=== PATIENT | female | born 1995 | race Caucasian/White ===

== ENCOUNTER 2019-11-13 10:55 | Emergency (ER) | payer MEDICAID, SELFPAY ==
--- NOTE | 2019-11-13 11:08 | ED.GENADULT ---
HPI - General Adult General Chief complaint: Recheck/Abnormal Lab/Rx Stated complaint: asthma symptoms Time Seen by Provider: 11/13/19 11:23 Source: patient Mode of arrival: ambulatory Limitations: no limitations History of Present Illness HPI narrative: 24-year-old female patient presents to the the medical center with complaints of an asthma exacerbation. Patient states that her asthma has been flaring up for the last several days and states that she is out of her nebulizer solution and only has a few puffs left of her inhaler. Patient states that she recently moved to the area and states as this time she does not have a primary doctor and states that no one is taking new patients at this time due to the coronavirus pandemic. Patient denies any chest pain at this time and states she has had some shortness of breath at times. Patient states that she does have a history of asthma. Patient denies any fevers, coughing, abdominal pain, nausea, vomiting or diarrhea. Related Data Home Medications Medication Instructions Recorded Confirmed Bc Pill 11/13/19 albuterol sulfate 11/13/19 albuterol sulfate 11/13/19 spironolactone 11/13/19 Allergies Allergy/AdvReac Type Severity Reaction Status Date / Time No Known Allergies Allergy Verified 11/13/19 11:26 Review of Systems Review of Systems: Narrative: CONSTITUTIONAL: Denies fever, chills, or sweats. EYES: Denies visual changes, redness, or discharge. ENT: Denies rhinorrhea, congestion, sore throat, or otalgia. CARDIOVASCULAR: Denies chest pain, palpitations, or edema. RESPIRATORY: Denies cough, positive dyspnea. GASTROINTESTINAL: Denies abdominal pain, nausea, vomiting, or diarrhea. GENITOURINARY: Denies dysuria or hematuria. SKIN: Denies rash or itching. MUSCULOSKELETAL: Denies back pain, joint pain, or myalgia. NEUROLOGIC: Denies headache, numbness, or weakness. PSYCHIATRIC: Denies anxiety or depression. PMFSH Comments At the time of my signature I agree with nursing past medical history, surgical, social, and family history. There is no relevant family history pertinent to the presenting complaint. Exam Narrative: Exam Narrative: GENERAL: Well-appearing, well-nourished, and in no acute distress. HEAD: Normocephalic, atraumatic. EYES: PERRLA and EOMI. ENT: Nares clear, no rhinorrhea or epistaxis. Mucous membranes moist. Posterior pharynx with no erythema, tonsil enlargement, exudates or lesions present. Bilateral TMs are clear with no erythema or foreign bodies in the canal. NECK: Supple. No lymphadenopathy CHEST: Patient does have inspiratory and expiratory wheezing noted to bilateral upper and lower lobes on auscultation. No respiratory distress. Patient is able to talk in clear complete sentences. No tripoding noted. HEART: Regular rate and rhythm. No murmur heard. Normal peripheral pulses. ABDOMEN: Soft, nontender, nondistended, normal active bowel sounds. EXTREMITIES: Normal range of motion. No edema. SKIN: Warm, dry, no rash. NEURO: No focal deficits. Alert and oriented x3. Course Vital Signs Vital signs: Vital Signs Temperature 36.3 C L 11/13/19 11:17 Pulse Rate 73 11/13/19 11:17 Respiratory Rate 18 11/13/19 11:17 Blood Pressure 104/63 11/13/19 11:17 Pulse Oximetry 96 11/13/19 11:17 Temperature 36.3 C L 11/13/19 11:17 Pulse Rate 73 11/13/19 11:17 Respiratory Rate 18 11/13/19 11:17 Blood Pressure 104/63 11/13/19 11:17 Pulse Oximetry 96 11/13/19 11:17 Vital signs reviewed. Medical Decision Making Differential Diagnosis Differential Diagnosis: Differential diagnosis: Allergic rhinitis, chronic sinusitis, tonsillitis, acute sinusitis, infectious mononucleosis, seasonal influenza, pertussis, diphtheria, meningococcal disease, viral syndrome, viral bronchitis, RSV. GERD, URI, asthma bronchitis, pneumonia, COPD exacerbation, cardiac-related shortness of breath, AAA, spontaneous pneumothorax, pulmonary embolism, foreign body aspi
[2019-11-13 11:17] VITALS: BP 104/63; PULSE 73; RESP 18; TEMP 36.3; O2SAT 96
== END 2019-11-13 11:30 | disposition home or self-care (01) ==
PROVIDERS: Emergency Provider Nurse Practitioner Family
DX: J45.41 Moderate persistent asthma with (acute) exacerbation (principal); E28.2 Polycystic ovarian syndrome
CPT/HCPCS: 99203; G0463

== ENCOUNTER 2019-12-29 17:02 | Emergency (ER) | payer OTHER, SELFPAY ==
--- NOTE | 2019-12-29 17:06 | ED.GENADULT ---
HPI - General Adult General Chief complaint: Asthma Stated complaint: asthma Time Seen by Provider: 12/29/19 17:27 Source: patient Mode of arrival: ambulatory Limitations: no limitations History of Present Illness HPI narrative: 24-year-old female patient presents to the [facility] with complaints of asthma exacerbation. Patient states is been going on for a couple of weeks now however she has been out of her nebulized albuterol. Patient states she has been using her inhaler but does not seem to be helping. Patient continues to have some shortness of breath as well as wheezing. Denies any fevers. Denies any nausea vomiting or diarrhea. Denies any chest pain. Related Data Home Medications Medication Instructions Recorded Confirmed Bc Pill 11/13/19 albuterol sulfate 11/13/19 spironolactone 11/13/19 Allergies Allergy/AdvReac Type Severity Reaction Status Date / Time No Known Allergies Allergy Verified 11/13/19 11:26 Review of Systems Review of Systems: Narrative: CONSTITUTIONAL: Denies fever, chills, or sweats. EYES: Denies visual changes, redness, or discharge. ENT: Denies rhinorrhea, congestion, sore throat, or otalgia. CARDIOVASCULAR: Denies chest pain, palpitations, or edema. RESPIRATORY: Denies cough, positive dyspnea. GASTROINTESTINAL: Denies abdominal pain, nausea, vomiting, or diarrhea. GENITOURINARY: Denies dysuria or hematuria. SKIN: Denies rash or itching. MUSCULOSKELETAL: Denies back pain, joint pain, or myalgia. NEUROLOGIC: Denies headache, numbness, or weakness. PSYCHIATRIC: Denies anxiety or depression. PMFSH Comments At the time of my signature I agree with nursing past medical history, surgical, social, and family history. There is no relevant family history pertinent to the presenting complaint. Exam Narrative: Exam Narrative: GENERAL: Well-appearing, well-nourished, and in no acute distress. HEAD: Normocephalic, atraumatic. EYES: PERRLA and EOMI. ENT: Nares clear, no rhinorrhea or epistaxis. Mucous membranes moist. NECK: Supple. No lymphadenopathy CHEST: Patient has inspiratory and expiratory wheezing noted to bilateral upper and lower lobes on auscultation. Patient is talking in broken sentences. HEART: Regular rate and rhythm. No murmur heard. Normal peripheral pulses. ABDOMEN: Soft, nontender, nondistended, normal active bowel sounds. EXTREMITIES: Normal range of motion. No edema. SKIN: Warm, dry, no rash. NEURO: No focal deficits. Alert and oriented x3. Course Reevaluation(s) Reevaluation #1: Reevaluated patient after her DuoNeb has been completed. Patient is much clearer still hear a little inspiratory wheezing to the left lower lobe but overall much improved. Patient states that she is feeling much better. Discussed with patient we will go ahead and discharge her home with the oral steroids as well as the refill for the nebulized albuterol. Patient states she does not need any more refills on her portable inhaler. Discussed with patient that if she continues have worsening symptoms such as increased chest pain, shortness of breath despite the medications that we are giving her today that she would need to go the ER for further evaluation and treatment. Otherwise patient should follow-up with her primary doctor in the next 5 to 7 days as needed. Date: 12/29/19 Time: 18:10 Vital Signs Vital signs: Vital Signs Temperature 36.4 C 12/29/19 17:13 Pulse Rate 72 12/29/19 17:13 Respiratory Rate 12/29/19 17:13 Blood Pressure 130/84 12/29/19 17:13 Pulse Oximetry 98 12/29/19 17:13 Temperature 36.4 C 12/29/19 17:13 Pulse Rate 72 12/29/19 17:13 Respiratory Rate 20 12/29/19 17:13 Blood Pressure 130/84 12/29/19 17:13 Pulse Oximetry 98 12/29/19 17:13 Vital signs reviewed. Medical Decision Making Differential Diagnosis Differential Diagnosis: Differential diagnosis: GERD, URI, asthma bronchitis, pneumonia, COPD exacerbation, cardiac-related shortn
[2019-12-29 17:13] VITALS: BP 130/84; PULSE 72; RESP 20; TEMP 36.4; O2SAT 98
[2019-12-29] MEDS: ALBUTEROL SULFATE NEB 2.5 MG/3 ML INH INHALATION (17:38)
[2019-12-29] MEDS: IPRATROPIUM BR 0.02% INH SOLN 0.5 MG/2.5 ML VIAL INHALATION (17:39)
[2019-12-29 18:14] VITALS: PULSE 67; RESP 16; O2SAT 96
== END 2019-12-29 18:14 | disposition home or self-care (01) ==
PROVIDERS: Emergency Provider Nurse Practitioner Family
DX: J45.901 Unspecified asthma with (acute) exacerbation (principal); E28.2 Polycystic ovarian syndrome
CPT/HCPCS: 94640; 99213; G0463

== ENCOUNTER 2020-04-22 11:17 | Emergency (ER) | payer OTHER, SELFPAY ==
[2020-04-22 11:26] VITALS: BP 137/89; PULSE 65; RESP 20; TEMP 36.4; O2SAT 99
--- NOTE | 2020-04-22 11:39 | ED.URI ---
HPI - URI/Sore Throat General Chief Complaint: Upper Respiratory Infection Stated Complaint: sore throat Time Seen by Provider: 04/22/20 11:40 Source: patient and RN notes reviewed Mode of arrival: ambulatory Limitations: no limitations History of Present Illness HPI Narrative: 25-year-old female presents with concern for sore throat. Reports mild rhinorrhea, denies headache, nausea, nasal congestion, shortness of breath, fever, body aches, chills, sweats. MD elicited complaint: sore throat Related Data Home Medications Medication Instructions Recorded Confirmed spironolactone 200 mg PO DAILY 11/13/19 04/22/20 norethindrone ac-eth estradiol 1 tablet PO DAILY 04/22/20 04/22/20 [Microgestin 1.5/ (21)] Allergies Allergy/AdvReac Type Severity Reaction Status Date / Time No Known Allergies Allergy Verified 04/22/20 11:34 Review of Systems Review of Systems: Narrative: CONSTITUTIONAL: Denies malaise, chills, sweats, or fever. EYES: Denies visual changes, redness, or discharge. ENT: Denies congestion, sinus pain, otalgia. Reports rhinorrhea and sore throat. CARDIOVASCULAR: Denies chest pain, palpitations, or edema. RESPIRATORY: Reports occasional cough. Denies dyspnea. GASTROINTESTINAL: Denies abdominal pain, nausea, vomiting, diarrhea SKIN: Denies rash or itching. MUSCULOSKELETAL: Denies myalgia. NEUROLOGIC: Denies headache. All systems reviewed & are unremarkable except as noted in HPI and below PMFSH Comments At time of signature, agree with nursing past medical, surgical, social and family history. There is no relevant family history pertinent to the presenting complaint Exam Narrative: Exam Narrative: GENERAL: Well-appearing, well-nourished, and in no acute distress. HEAD: Normocephalic EYES: PERRLA, conjunctivae clear ENT: Nares clear, turbinates erythematous, clear discharge. Mucous membranes moist. TM pearly mondragon with sharp light reflex bilaterally; no tragal tenderness. Oropharynx erythematous without lesions. Tonsils mildly enlarged and without exudate, no drooling, no hoarseness, no trismus, uvula midline. NECK: Supple. No lymphadenopathy CHEST: Clear to auscultation, breath sounds equal. No wheezing, rhonchi, rales, or stridor. No respiratory distress, speaks in full sentences. HEART: Regular rate and rhythm. No murmur heard. SKIN: Warm, dry, no rash. NEURO: Alert and oriented x3. PSYCH: Normal mood and affect Course Course Emergency Course: Patient is aware of diagnosis, understands and agrees to treatment plan. Anticipatory guidance given. Patient agrees to follow-up as directed and is aware of reasons to seek care at the emergency department. Portions of this record may have been created with voice recognition software Vital Signs Vital signs: Vital Signs Temperature 97.6 F 04/22/20 11:26 Pulse Rate 65 04/22/20 11:26 Respiratory Rate 20 04/22/20 11:26 Blood Pressure 137/89 04/22/20 11:26 Pulse Oximetry 99 04/22/20 11:26 Temperature 97.6 F 04/22/20 11:26 Pulse Rate 65 04/22/20 11:26 Respiratory Rate 20 04/22/20 11:26 Blood Pressure 137/89 04/22/20 11:26 Pulse Oximetry 99 04/22/20 11:26 Reviewed. Patient has been instructed to follow up with her primary care provider within the next week regarding her elevated blood pressure today. MDM - URI/Sore Throat MDM Narrative Medical decision making narrative: Differential diagnosis considered: [place] virus, strep pharyngitis, allergic rhinitis, upper respiratory tract infection, sinusitis, rhinosinusitis, nasopharyngitis. viral pharyngitis, otitis media, otitis externa, pneumonia, bronchitis, viral cough syndrome, viral syndrome, and influenza. Exam findings show no acute concerns or changes; patient is non-toxic appearing and is in no distress. Patient is appropriate for outpatient treatment and follow-up. Lab Data Attestation: I reviewed the patient's lab results. Labs: Influenza A Screen Negative
== END 2020-04-22 12:01 | disposition home or self-care (01) ==
PROVIDERS: Emergency Provider Nurse Practitioner; PCP Emergency Medicine
DX: J02.0 Streptococcal pharyngitis (principal); J45.909 Unspecified asthma, uncomplicated; E28.2 Polycystic ovarian syndrome
CPT/HCPCS: 87804; 87880; 99213; G0463

== ENCOUNTER 2020-04-23 09:08 | Outpatient (NON) | payer OTHER, SELFPAY ==
[2020-04-23 17:37] LABS: SARS-CoV-2 RNA PCR Negative
== END 2020-04-23 09:09 ==
PROVIDERS: PCP Emergency Medicine; Visit Provider Nurse Practitioner
DX: J02.9 Acute pharyngitis, unspecified (principal); Z20.828 Contact with and (suspected) exposure to other viral communicable diseases
CPT/HCPCS: 87635; C9803; U0003

== ENCOUNTER 2021-02-23 13:30 | Emergency (ER) | payer OTHER, SELFPAY ==
[2021-02-23 13:50] VITALS: BP 127/87; PULSE 82; RESP 18; TEMP 36.7; O2SAT 98
--- NOTE | 2021-02-23 13:55 | ED.GENADULT ---
HPI - General Adult General Chief complaint: Asthma Stated complaint: Shortness of breathe,Weezing Source: patient and RN notes reviewed Mode of arrival: ambulatory History of Present Illness HPI narrative: This is a 26-year-old female that presented to urgent care because she needed a refill on her albuterol. According to patient her primary care physician would not fill her prescription because she did not make her last appointment. Patient notes that without her inhaler she has become more short of breath if she will be given a refill on her asthma medication instructed to follow-up with her primary care physician. Related Data Home Medications Medication Instructions Recorded Confirmed drospirenone (contraceptive) 4 mg PO DAILY 02/23/21 02/23/21 [Slynd] Allergies Allergy/AdvReac Type Severity Reaction Status Date / Time No Known Allergies Allergy Verified 02/23/21 13:48 Review of Systems Review of Systems: A 14 organ system Review of Systems was performed and pertinent positives included in the HPI, otherwise remaining ROS is negative. [facility] Family History Family History (Updated 02/23/21 @ 14:10 by PATTY FigueroaC) Other Family history non-contributory Social History Social History Gender identity (if verbalized by the patient): Female Exam Narrative: GENERAL: This is a well-nourished, well-developed patient, in no apparent distress. HEAD: normocephalic, atraumatic. EYES: PERRL. Sclera clear/white. Vision is grossly intact. EARS: External ears normal, auditory canals clear and without drainage, TMs normal without perforation. Hearing grossly intact. NOSE: External nose normal with no obvious nasal discharge, nares without redness, no rhinorrhea. THROAT: Mucous membranes moist, posterior pharynx clear. NECK: Neck supple, non-tender without lymphadenopathy, masses or thyromegaly. CARDIOVASCULAR: Regular rate and rhythm without murmurs, gallops, or rubs. RESPIRATORY: Clear to auscultation. Breath sounds equal bilaterally. No wheezes, rales, or rhonchi. GASTROINTESTINAL: Abdomen soft, non-tender, nondistended. Bowel sounds are active. No hepato-splenomegaly, or palpable masses. No guarding. SKIN: warm, intact with no suspicious lesions or rash, good texture and turgor. NEURO: awake, alert, and oriented to person, place and time. There were no obvious focal neurologic abnormalities. Steady gait EXTREMITIES: Normal range of motion. No edema. No calf tenderness. Negative Homans sign bilaterally. BACK: Nontender without deformity or crepitance. No flank tenderness. Course Course Emergency Course: Refill on patient's current medication Vital Signs Vital signs: Vital Signs Temperature 98.0 F 02/23/21 13:50 Pulse Rate 82 02/23/21 13:50 Respiratory Rate 18 02/23/21 13:50 Blood Pressure 127/87 02/23/21 13:50 Pulse Oximetry 98 02/23/21 13:50 Temperature 98.0 F 02/23/21 13:50 Pulse Rate 82 02/23/21 13:50 Respiratory Rate 18 02/23/21 13:50 Blood Pressure 127/87 02/23/21 13:50 Pulse Oximetry 98 02/23/21 13:50 Medical Decision Making Differential Diagnosis Differential Diagnosis: Asthma Vital Signs Vital Signs: Vital Signs Temperature 98.0 F 02/23/21 13:50 Pulse Rate 82 02/23/21 13:50 Respiratory Rate 18 02/23/21 13:50 Blood Pressure 127/87 02/23/21 13:50 Pulse Oximetry 98 02/23/21 13:50 Temperature 98.0 F 02/23/21 13:50 Pulse Rate 82 02/23/21 13:50 Respiratory Rate 18 02/23/21 13:50 Blood Pressure 127/87 02/23/21 13:50 Pulse Oximetry 98 02/23/21 13:50 Discharge Plan Discharge Clinical Impression: Asthma Qualifiers: Asthma severity: mild Asthma persistence: intermittent Asthma complication type: uncomplicated Qualified Code(s): J45.20 - Mild intermittent asthma, uncomplicated Patient Disposition: Home, Self-Care Condition: Stable Instructions: A
== END 2021-02-23 14:10 | disposition home or self-care (01) ==
PROVIDERS: Emergency Provider Nurse Practitioner
DX: J45.20 Mild intermittent asthma, uncomplicated (principal)
CPT/HCPCS: 99213; G0463

== ENCOUNTER 2021-06-26 07:52 | Outpatient (CLI) | payer OTHER, SELFPAY ==
--- NOTE | 2021-07-03 13:51 | WPDHOMESLEEP ---
Sleep Study - Home Unattended Date of Study: 06/26/21 <Etelvina Joshi DO - Last Filed: 07/03/21 14:02> Ordering Provider: Connie Cotto NP <Etelvina Joshi DO - Last Filed: 07/03/21 14:02> Interpreting Provider: Etelvina Joshi DO <Etelvina Joshi, DO - Last Filed: 07/03/21 14:02> Home Sleep Study Type: Apnea Link Air <Etelvina Joshi, DO - Last Filed: 07/03/21 14:02> Height: 1.75 m <Etelvina Joshi DO - Last Filed: 07/03/21 14:02> Weight: 131.542 kg <Etelvina Joshi DO - Last Filed: 07/03/21 14:02> Body Mass Index: 42.8 <Etelvina Joshi DO - Last Filed: 07/03/21 14:02> Neck Circumference (inches): 16 <Etelvina Joshi DO - Last Filed: 07/03/21 14:02> Bowie: 3 <Etelvina Joshi DO - Last Filed: 07/03/21 14:02> Reason for Sleep Study Hypersomnia <Etelvina Joshi DO - Last Filed: 07/03/21 14:02> Sleep History The patient is a 26-year-old female with anxiety, asthma and PCOS that had a home sleep test ordered by her primary care due to hypersomnia. The patient states she has a hard time staying asleep. She tosses and turns frequently. The patient rarely awakens from sleep short of breath. She rarely awakens at night with heartburn, belching or cough. She is unsure if she snores. She constantly has trouble sleeping when she has a cold. She denies waking up gasping for air throughout the night. She occasionally has breathing problems at night observed by others. She occasionally sweats excessively at night. She denies heart palpitations or irregular heartbeats during the night. She occasionally falls asleep during the day but never while driving. The patient denies sleep paralysis, cataplexy and hypnagogic / hypnopompic hallucinations. She denies having nightmares. She rarely feels sad or depressed. She occasionally has anxiety. She denies noticing parts of her body jerk. She denies kicking throughout the night. She denies crawling and aching feelings in her legs as well as leg pain during the night. She rarely correct teeth during sleep and rarely awakens with a morning jaw pain. She denies being bothered by pain during the day and being awakened by pain during the. She denies waking up feeling stiff in the morning sore and achy muscles. She goes to bed at midnight on both weekdays and weekends. It takes her 20 minutes to fall asleep. She wakes up 3 times throughout the night. When she awakens, she will look at the clock and change positions. She can fall asleep within a couple minutes or it will occasionally take hours. She wakes up between 6 and 8:00 a.m. on both weekdays and weekends. She typically gets between 6 and 8 hours of sleep per night. She will stay in bed for a few minutes after awakening in morning. She currently lives with her sister. She denies consuming any caffeinated beverages within 2 hours of bedtime. She does not engage in physical exercise before bedtime. She will watch television before falling asleep. She does take naps in the afternoon or the evening but they are not refreshing. The patient quit smoking 6 years ago. She does consume 2 caffeinated beverages per day. She denies alcohol use. She does use marijuana occasionally. <Etelvina Joshi DO - Last Filed: 07/03/21 14:02> [facility] Past Medical History Medical History: Medical History Anxiety Asthma BMI 40.0-44.9, adult Cerumen impaction Encounter to establish care Environmental and seasonal allergies Hypersomnia PCOS (polycystic ovarian syndrome) <Etelvina Joshi DO - Last Filed: 07/03/21 14:02> Family History Family History: Family History Father Depression Anxiety Mother Alcoholism Hypertension Depression Anxiety Grandparent Diabetes mellitus Hypertension Depression
[2021-07-03 14:02] VITALS: BMI 42.8
== END 2021-06-27 14:25 | disposition home or self-care (01) ==
LOC: ANHCSM 07:52
PROVIDERS: PCP Nurse Practitioner Family; Visit Provider Nurse Practitioner Family
DX: G47.10 Hypersomnia, unspecified (principal); G47.9 Sleep disorder, unspecified
CPT/HCPCS: 95806

== ENCOUNTER 2021-08-27 16:50 | Emergency (ER) | payer OTHER, SELFPAY ==
[2021-08-27 17:02] VITALS: BP 148/114; PULSE 84; RESP 18; TEMP 36.1; O2SAT 100
[2021-08-27] MEDS: TETANUS,DIPHTHERIA,AC PERTUSSIS ADULT (0.5 ML) BOOSTRIX IM (17:28)
--- NOTE | 2021-08-27 17:32 | ED.GENADULT ---
HPI - General Adult General Chief complaint: Skin/Abscess/Foreign Body Stated complaint: rt thumb laceration Source: patient Mode of arrival: ambulatory Limitations: no limitations History of Present Illness HPI narrative: Presents for evaluation of wound to the right thumb. She works at [employer] and cut her right thumb two hours ago while using a mandolin. She applied pressure to the area but was unable to get it to stop bleeding. Her boss' is a nurse and was unable to get the bleeding to stop either, so she came here for further evaluation. She reports moderate sharp pain in the affected area. No loss of ROM. No paresthesias. She is not diabetic. She is right hand dominant. Date of last tetanus unknown. No additional complaints or concerns. Related Data Home Medications Medication Instructions Recorded Confirmed metformin 500 mg PO TID 08/27/21 08/27/21 montelukast 10 mg PO DAILY 08/27/21 08/27/21 norethindrone-e.estradiol-iron 1 tablet PO DAILY 08/27/21 08/27/21 [Aurovela Fe 1.5/30 (28)] spironolactone 100 mg PO DAILY 08/27/21 08/27/21 Allergies Allergy/AdvReac Type Severity Reaction Status Date / Time No Known Allergies Allergy Verified 08/27/21 17:07 Review of Systems Review of Systems: CONSTITUTIONAL: Denies fever, chills, or sweats. EYES: Denies visual changes, redness, or discharge. ENT: Denies rhinorrhea, congestion, sore throat, or otalgia. CARDIOVASCULAR: Denies chest pain, palpitations, or edema. RESPIRATORY: Denies cough or dyspnea. GASTROINTESTINAL: Denies abdominal pain, nausea, vomiting, or diarrhea. GENITOURINARY: Denies dysuria or hematuria. SKIN: Reports avulsion injury to right thumb MUSCULOSKELETAL: Report right thumb pain. Denies back pain NEUROLOGIC: Denies headache, numbness, dizziness, or weakness. PSYCHIATRIC: Denies anxiety or depression. [facility] Past Medical History Medical History (Updated 08/27/21 @ 17:44 by Kwasi Hyde, BIOPSYCHOLOGIST, ) Anxiety Asthma BMI 40.0-44.9, adult Cerumen impaction Encounter to establish care Environmental and seasonal allergies Hypersomnia PCOS (polycystic ovarian syndrome) Skin avulsion Surgical History Surgical History History of wisdom tooth extraction Family History Family History Father Depression Anxiety Mother Alcoholism Hypertension Depression Anxiety Grandparent Diabetes mellitus Hypertension Depression Anxiety Other Family history non-contributory Social History Social History Smoking status: Former smoker Alcohol intake: current Alcohol use details: socially Substance use: current Substance use type: marijuana Last use: weekends Gender identity (if verbalized by the patient): Female Exam Narrative: GENERAL: Well-appearing, well-nourished, and in no acute distress. HEAD: Normocephalic, atraumatic. EYES: PERRLA and EOMI. ENT: Nares clear, no rhinorrhea or epistaxis. Mucous membranes moist. Oropharynx without tonsillar hypertrophy exudate or other lesions. Bilateral TMs pearly mondragon nonbulging NECK: Supple. No adenopathy or masses. No carotid bruits or JVD CHEST: Clear to auscultation. No respiratory distress. No wheezes rales or rhonchi HEART: Regular rate and rhythm. No murmur heard. Normal peripheral pulses. ABDOMEN: Soft, nontender, nondistended, normal active bowel sounds. EXTREMITIES: Normal range of motion. No edema. SKIN: Approximately 8 mm avulsion injury to distal phalanx of right thumb that is actively bleeding. Abd pain in place, which was removed for evaluation NEURO: No focal deficits. Alert and oriented x3. PSYCH: Normal mood and affect. Course Course Emergency Course: This is a 26-year-old female that presented with an avulsion injury to the distal phalanx of the right thumb. T
== END 2021-08-27 17:37 | disposition home or self-care (01) ==
PROVIDERS: Emergency Provider Nurse Practitioner; PCP Family Medicine
DX: S61.001A Unspecified open wound of right thumb without damage to nail, initial encounter (principal); W27.4XXA Contact with kitchen utensil, initial encounter; Y99.0 Civilian activity done for income or pay; Z23 Encounter for immunization; J45.909 Unspecified asthma, uncomplicated; E28.2 Polycystic ovarian syndrome
CPT/HCPCS: 90471; 90715; 99212; G0463

== ENCOUNTER 2021-09-04 10:35 | Emergency (ER) | payer OTHER, SELFPAY ==
--- NOTE | 2021-09-04 10:50 | ED.URI ---
HPI - URI/Sore Throat General Chief Complaint: Upper Respiratory Infection Stated Complaint: flu symptoms and trouble breathing Time Seen by Provider: 09/04/21 10:58 Source: patient, RN notes reviewed and old records reviewed Mode of arrival: ambulatory Limitations: no limitations History of Present Illness HPI Narrative: 26-year-old female patient [facility] complaints of sinus congestion, sore throat and cough starting 5 days ago. Was started on Z-Jony by PCP 3 days ago. Reports sinus congestion and drainage is better. Sore throat continues. Has been taking Robitussin and other ejvj-wun-fwaixeg medicine for sinus congestion, drainage and cough. Woke up in the middle of the night with heart racing and it scared her. Patient thinks congestion moved to her chest, has been using albuterol nebulizer a couple puffs periodically throughout the day. Never using an entire albuterol nebulizer vial. Has not been using her controller inhaler and is unsure of the name. Has not been taking Singulair. Has not been using rescue inhaler has only been using nebulizer. [place] like she was wheezing yesterday. Feels like she has to work harder to take a deep breath. Reports eating and drinking okay. Has felt hot and cold, denies fever. Patient is wearing sweater at present and sweating, reports would feel cold if she took her sweater off. Patient also taking cephalexin for finger injury. MD elicited complaint: cough, sore throat, rhinorrhea and nasal congestion Related Data Home Medications Medication Instructions Recorded Confirmed metformin 500 mg PO TID 08/27/21 09/04/21 montelukast 10 mg PO DAILY 08/27/21 09/04/21 norethindrone-e.estradiol-iron 1 tablet PO DAILY 08/27/21 09/04/21 [Aurovela Fe 1.5/30 (28)] spironolactone 100 mg PO DAILY 08/27/21 09/04/21 albuterol 90 mcg/actuation aerosol mcg INHALATION PRN 08/28/21 08/28/21 inhaler fluticasone propionate 50 1 spray INTRANASAL BID 08/28/21 09/04/21 mcg/actuation nasal spray,suspension ipratropium 0.5 mg-albuterol 3 mg 3 ml INHALATION QID 02/21/22 02/28/22 (2.5 mg base)/3 mL nebulization soln Allergies Allergy/AdvReac Type Severity Reaction Status Date / Time No Known Allergies Allergy Verified 09/04/21 10:59 Review of Systems Review of Systems: CONSTITUTIONAL: Denies malaise, or fever. Hot and cold sweats at times. EYES: Denies visual changes, redness, or discharge. ENT: Reports rhinorrhea, congestion, sinus pain, and sore throat. Reports stuffy and runny nose are improved. Denies earache. CARDIOVASCULAR: Denies chest pain, palpitations, or edema. RESPIRATORY: Reports cough and congestion. Does not feel like she can easily take a full deep breath. Chest feels tight and congested. GASTROINTESTINAL: Denies abdominal pain, nausea, diarrhea. Vomited this morning. Denies nausea. SKIN: Denies rash or itching. MUSCULOSKELETAL: Denies myalgia. NEUROLOGIC: Headache off and on for the last 5 days. All systems reviewed & are unremarkable except as noted in HPI and below PMFSH Past Medical History Medical History Anxiety Asthma BMI 40.0-44.9, adult Cerumen impaction Encounter to establish care Environmental and seasonal allergies Hypersomnia PCOS (polycystic ovarian syndrome) Skin avulsion Surgical History Surgical History History of wisdom tooth extraction Family History Family History Father Depression Anxiety Mother Alcoholism Hypertension Depression Anxiety Grandparent Diabetes mellitus Hypertension Depression Anxiety Other Family history non-contributory Social History Social History Smoking status: Former smoker Alcohol intake: current Alcohol use details: socially Substance use: c
[2021-09-04 10:52] VITALS: BP 143/87; PULSE 124; RESP 28; TEMP 36.3; O2SAT 95
[2021-09-04] MEDS: IPRATROPIUM BR 0.02% INH SOLN 0.5 MG/2.5 ML VIAL INHALATION (11:17)
[2021-09-04] MEDS: ALBUTEROL SULFATE NEB 2.5 MG/3 ML INH INHALATION (11:18)
== END 2021-09-04 12:32 | disposition home or self-care (01) ==
PROVIDERS: Emergency Provider Nurse Practitioner Family; PCP Nurse Practitioner Family
DX: J45.901 Unspecified asthma with (acute) exacerbation (principal); Z87.891 Personal history of nicotine dependence; E28.2 Polycystic ovarian syndrome
CPT/HCPCS: 94640; 99213; G0463

== ENCOUNTER 2023-01-14 10:29 | Emergency (ER) | payer OTHER, SELFPAY ==
--- NOTE | 2023-01-14 10:41 | ED.URI ---
HPI - URI/Sore Throat General Chief Complaint: Upper Respiratory Infection Stated Complaint: sob Time Seen by Provider: 01/14/23 10:34 Source: patient Mode of arrival: ambulatory Limitations: no limitations History of Present Illness HPI Narrative: Patient is a 27-year-old female who presents with abdominal muscle pain for 2 weeks after multiple episodes of vomiting. Patient states she has been using heat and ice along with Tylenol and ibuprofen with no relief. Patient is no longer vomiting but still has pain when doing daily activities or taking deep breaths. Patient has primary care appointment on . Reports pain unchanged and feels like it is spasming at times. Patient did have migraine at start of symptoms which was causing the vomiting. Patient states she no longer has a migraine. Has not had any vision changes, numbness tingling to extremities, chest pain or shortness of breath. Related Data Home Medications Medication Instructions Recorded Confirmed metformin 500 mg tablet 500 mg PO TID 08/27/21 01/14/23 norethindrone 1.5 mg-ethinyl 1 tablet PO DAILY 08/27/21 01/14/23 estradiol 30 mcg(21)/iron 75 mg(7) tablet (Aurovela Fe 1.5/30 (28)) spironolactone 100 mg tablet 100 mg PO DAILY 08/27/21 01/14/23 fluticasone propionate 50 1 spray intranasal BID 08/28/21 01/14/23 mcg/actuation nasal spray,suspension (Flonase Allergy Relief) Allergies Allergy/AdvReac Type Severity Reaction Status Date / Time No Known Allergies Allergy Verified 01/14/23 10:41 Review of Systems Review of Systems: All systems reviewed & are unremarkable except as noted in HPI and below Constitutional: Constitutional: Denies body ache(s), Denies chills, Denies fatigue, Denies fever(s), Denies headache(s), Denies malaise and Denies weakness Eyes: Eyes: Denies blurry vision, Denies itchy eyes and Denies loss of vision ENT: Denies otalgia, Denies headache(s), Denies nasal congestion, Denies sinus pain and Denies sore throat Cardiovascular: Cardiovascular: Denies chest pain, Denies irregular heart rhythm and Denies dyspnea Respiratory: Respiratory: Denies cough and Denies dyspnea Gastrointestinal: Gastrointestinal: Reports abdominal pain, Denies diarrhea, Denies nausea and Denies vomiting Musculoskeletal: Musculoskeletal: Denies back pain, Denies myalgias and Denies arthralgias Integumentary/Breasts: Skin/Breast: Denies pruritus and Denies rash Neurologic: Denies headache(s), Denies loss of vision and Denies weakness Psychiatric: Psychiatric: Reports no additional psychiatric complaints Endocrine: Endocrine: Denies fatigue Allergic/Immunologic: Allergic/Immunologic: Denies itchy eyes PMFSH Past Medical History Medical History (Updated 01/14/23 @ 10:57 by Alessandra Rosales APRN) Anxiety Asthma BMI 40.0-44.9, adult Cerumen impaction Encounter to establish care Environmental and seasonal allergies Headache Hypersomnia Migraine headache Nausea & vomiting PCOS (polycystic ovarian syndrome) Skin avulsion Surgical History Surgical History History of wisdom tooth extraction Family History Family History Father Depression Anxiety Mother Alcoholism Hypertension Depression Anxiety Grandparent Diabetes mellitus Hypertension Depression Anxiety Other Family history non-contributory Social History Social History Smoking status: Former smoker Alcohol intake: current Alcohol use details: socially Substance use: current Substance use type: marijuana Last use: weekends Lack of Transportation: No Lack of Food: Sometimes True Current Housing: I Have Housing Concerned About Future Housing: No Difficulty Paying Gas/Electric Bills: No Difficulty Paying for Meds: No Currently Unemployed: No Education: Bachelor'
[2023-01-14 10:43] VITALS: BP 156/108; PULSE 82; RESP 18; TEMP 36.4; O2SAT 99
== END 2023-01-14 11:02 | disposition home or self-care (01) ==
PROVIDERS: Emergency Provider Nurse Practitioner Family; PCP Nurse Practitioner Family
DX: S39.011A Strain of muscle, fascia and tendon of abdomen, initial encounter (principal); X58.XXXA Exposure to other specified factors, initial encounter; J45.909 Unspecified asthma, uncomplicated; E28.2 Polycystic ovarian syndrome
CPT/HCPCS: 99213; G0463

== ENCOUNTER 2023-05-15 13:10 | Emergency (ER) | payer OTHER, SELFPAY ==
[2023-05-15 13:16] VITALS: BP 153/110; PULSE 112; RESP 20; TEMP 36.4; O2SAT 97
[2023-05-15 13:43] VITALS: BP 154/114; PULSE 84; RESP 16; O2SAT 95
[2023-05-15 14:17] VITALS: BP 141/111; PULSE 88; RESP 16; O2SAT 95
[2023-05-15] MEDS: PROCHLORPERAZINE EDISYLATE 10 MG/2 ML VIAL IV PUSH (14:25)
[2023-05-15] MEDS: KETOROLAC 15 MG/ML VIAL (*BKC) IV PUSH (14:25)
[2023-05-15] MEDS: LACTATED RINGERS 1,000 ML 999 ML IV CONT (14:25)
[2023-05-15 14:28] VITALS: BP 154/127; O2SAT 97
--- NOTE | 2023-05-15 14:30 | ED.HA ---
HPI - Headache General Chief Complaint: Headache Stated Complaint: migraine Time Seen by Provider: 05/15/23 13:30 Source: patient Limitations: no limitations History of Present Illness HPI Narrative: This is a 20-year-old female who presents with a headache since Saturday which became worse today. It is associated with nausea and vomiting though she has been trying to maintain her hydration. She has been prescribed amitriptyline and butalbital but she tries to avoid taking either dvbi-apx-whnbmcg's or these medications unless the headache becomes intolerable so she did not take her prescribed medications until starting today and she took it twice. These are prescribed by her primary care physician. She has not yet established with a neurologist. This feels very similar to previous headaches. Her last headache was unilateral on the right and this time occurs unilaterally on the left with pain behind the eyes but she otherwise denies any vito eye pain. She does have photophobia and is wearing dark sunglasses both in the room and she states she wears these at home and outside when her symptoms are this bad. She has had some intermittent visual disturbances but denies any visual changes. No trauma, anticoagulation, or change in symptoms with change in location/environment. She states her limbs feel heavy. Her headache is an 8 or 9 out of 10 in severity. Related Data Home Medications Medication Instructions Recorded Confirmed metformin 500 mg tablet 500 mg PO TID 08/27/21 05/17/23 norethindrone 1.5 mg-ethinyl 1 tablet PO DAILY 08/27/21 05/17/23 estradiol 30 mcg(21)/iron 75 mg(7) tablet (Aurovela Fe 1.5/30 (28)) spironolactone 100 mg tablet 100 mg PO DAILY 08/27/21 05/17/23 fluticasone propionate 50 1 spray intranasal BID 08/28/21 05/17/23 mcg/actuation nasal spray,suspension (Flonase Allergy Relief) rimegepant 75 mg disintegrating 75 mg PO ONCE PRN 05/17/23 05/17/23 tablet (Nurtec ODT) Allergies Allergy/AdvReac Type Severity Reaction Status Date / Time sumatriptan Allergy Unknown Dizziness Verified 05/17/23 10:47 [facility] Past Medical History Medical History (Updated 05/17/23 @ 11:24 by Connie Cotto, ELECTRO WINNING OPERATOR) Anxiety Asthma BMI 40.0-44.9, adult Cerumen impaction Encounter to establish care Environmental and seasonal allergies Headache Heart murmur Hypersomnia Hypertension Migraine headache Morbid obesity with BMI of 45.0-49.9, adult Nausea & vomiting PCOS (polycystic ovarian syndrome) Skin avulsion Surgical History Surgical History History of wisdom tooth extraction Family History Family History Father Depression Anxiety Mother , liver failure Alcoholism Hypertension Depression Anxiety Liver failure Grandparent Diabetes mellitus Hypertension Depression Anxiety Other Family history non-contributory Social History Social History Smoking status: Former smoker Alcohol intake: current Alcohol use details: socially Substance use: current Substance use type: marijuana Last use: weekends Lack of Transportation: No Lack of Food: Sometimes True Current Housing: I Have Housing Concerned About Future Housing: No Difficulty Paying Gas/Electric Bills: No Difficulty Paying for Meds: No Currently Unemployed: No Education: Bachelor's Degree Difficulty w/ Childcare or Family Care: No Living arrangements: alone Gender identity (if verbalized by the patient): Female Exam Const: General: healthy appearing and alert; No diaphoretic Nutritional Appearance: obese Orientation/consciousness: patient oriented x3 and No confusion Limitations: no limitations HENMT: Head: normal to inspection Other: Gross auditory acuity intact Eyes: Conjunctivae: conjunctivae normal Pupils: Equa
[2023-05-15 15:57] VITALS: BP 149/101; PULSE 84; RESP 16; O2SAT 100
== END 2023-05-15 16:10 | disposition home or self-care (01) ==
PROVIDERS: Emergency Provider Student in an Organized Health Care Education/Training Program; PCP Nurse Practitioner Family
DX: G43.909 Migraine, unspecified, not intractable, without status migrainosus (principal); J45.909 Unspecified asthma, uncomplicated; I10 Essential (primary) hypertension; E28.2 Polycystic ovarian syndrome; E66.01 Morbid (severe) obesity due to excess calories; Z68.42 Body mass index [BMI] 45.0-49.9, adult; Z87.891 Personal history of nicotine dependence; Z79.84 Long term (current) use of oral hypoglycemic drugs; F41.9 Anxiety disorder, unspecified
CPT/HCPCS: 81025; 96361; 96374; 96375; 99284; J0780; J1885; J7120

== ENCOUNTER 2023-11-27 13:23 | Outpatient (CLI) | payer OTHER, MEDICAID, SELFPAY ==
--- NOTE | 2023-11-27 13:32 | ECHO_ITS ---
Patient Info Name: Court Agudelo Age: 28 years : 1995 Gender: Female Ht: 69 in Wt: 320 lbs BSA: 2.74 m2 HR: 94 bpm BP: 130 / 107 mmHg Technical Quality: Fair Exam Date: 11/27/2023 1:42 PM Exam Location: [facility] Patient Status: Outpatient Admit Date: 11/27/2023 Staff Ordering Physician: Connie Cotto NP National Sales Associate: Ottoniel Melendez RDCS Attending Provider: Connie Cotto NP Exam Type: CA echo dop bubble study w con Study Info Indications R01.1 - Cardiac murmur, unspecified Complete two-dimentional, color flow and Doppler transthoracic echocardiogram is performed with agitated saline and with contrast to opacify the left ventricle and to improve the delineation of the left ventricle endocardial borders. Contrast/Agitated Saline Contrast/Ag. Saline: Definity Amount: 2.00 ml IV Access Condition: patent with no signs of infiltration Contrast/Ag. Saline: Agitated Saline Amount: 14.00 ml IV Access Condition: patent with no signs of infiltration Summary 1. Left ventricular chamber dimension is normal. 2. D shape ventricular septum in systole suggests RV pressure overload. 3. Left ventricular systolic function is normal, estimated at 55-60%. 4. The left ventricular diastolic function is grade I diastolic dysfunction. 5. E/e' 4 is not elevated. 6. Right ventricular chamber dimension is severely enlarged. 7. Right ventricular systolic function is severely reduced and with abnormal TAPSE 1.5 cm. 8. Right atrial chamber dimension is severely enlarged. 9. Atrial septum bowed to left suggests increased right side atrial pressure. 10. Agitated saline injection with and without valsalva maneuver opacified right side cardiac chambers with significant shunt to left side cardiac chambers suggestive of patent foramen ovale or atrial septal defect. 11. There is mild mitral valve regurgitation. 12. There is moderate to severe tricuspid valve regurgitation. 13. Severe pulmonary hypertension, estimated pulmonary arterial systolic pressure is 117 mmHg. 14. There is mild pulmonic regurgitation. Left Ventricle E/e' 4 is not elevated. D shape ventricular septum in systole suggests RV pressure overload. Left ventricular chamber dimension is normal. Left ventricular systolic function is normal, estimated at 55-60%. The left ventricular diastolic function is grade I diastolic dysfunction. Right Ventricle Right ventricular systolic function is severely reduced and with abnormal TAPSE 1.5 cm. Right ventricular chamber dimension is severely enlarged. Left Atria Left atrial chamber dimension is normal. Right Atria Right atrial chamber dimension is severely enlarged. Atrial Septum Agitated saline injection with and without valsalva maneuver opacified right side cardiac chambers with significant shunt to left side cardiac chambers suggestive of patent foramen ovale or atrial septal defect. Atrial septum bowed to left suggests increased right side atrial pressure. Suspected patent foramen ovale visualized by 2D and agitated saline imaging. Aortic Valve The aortic valve is trileaflet. There is no aortic valve stenosis. There is no aortic valve regurgitation. Pulmonic Valve There is mild pulmonic regurgitation. Mitral Valve There is no mitral valve stenosis. There is mild mitral valve regurgitation. Tricuspid Valve There is moderate to severe tricuspid valve regurgitation. Severe pulmonary hypertension, estimated pulmonary arterial systolic pressure is 117 mmHg. Pericardium/Pleural The
[2023-11-27] MEDS: PERFLUTREN LIPID MICROSPHERES 1.5 ML VIAL DILUTED TO 10 ML TOTAL VOLUME IV PUSH (14:00)
--- NOTE | 2023-11-27 14:53 | ECG_ITS ---
SEE SCANNED COPY FOR CONFIRMED REPORT MTDD
--- NOTE | 2023-11-27 15:02 | IVDEFINITY ---
Prior to administration of IV Definity the patient was educated on the risks and benefits of the imaging enhancing agent including potential adverse side effects. The patient verbalized understanding. Allergies were verified. No exclusion criteria were identified and at least one of the following inclusion criteria were met: 1) physician request, 2) patient technically difficult to image (per the [place] [employer] Echocardi[employer] guidelines of two or more segments not discernable within the apical view), or 3) questionable left ventricular function. ?
== END 2023-11-27 13:24 | disposition home or self-care (01) ==
LOC: ANHCARD 13:25
PROVIDERS: PCP Nurse Practitioner Family; Visit Provider Nurse Practitioner Family
DX: R01.1 Cardiac murmur, unspecified (principal); I34.0 Nonrheumatic mitral (valve) insufficiency; I36.1 Nonrheumatic tricuspid (valve) insufficiency; I27.20 Pulmonary hypertension, unspecified; I37.1 Nonrheumatic pulmonary valve insufficiency; I11.9 Hypertensive heart disease without heart failure
CPT/HCPCS: 93005; 96375; C8929; Q9957

== ENCOUNTER 2023-11-28 17:19 | Observation (INO) | payer OTHER, MEDICAID, SELFPAY ==
--- NOTE | ~2023-11-28 | CT_ITS ---
EXAMINATION: CTA chest PE protocol DATE: 11/28/2023 21:25 INDICATION: Right ventricular overload TECHNIQUE: Computed tomography (CT) pulmonary angiogram of the chest was performed with 100 mL Omnipa que-350 intravenous contrast. Additional 3D reconstructions utilizing coronal maximum intensity proje ction (MIP) were performed. Automated exposure control and iterative reconstruction technique were em ployed. The dose-length product was 1136.83 mGy-cm. COMPARISON: None FINDINGS: No pulmonary embolism. There is enlargement of the central pulmonary arteries consistent with pulmona ry arterial hypertension. Small region of increased lucency at the left apex likely related to air tr apping in the setting of small airway disease. No pneumonia, pulmonary edema, pleural effusion or pne umothorax. Right heart predominant mild thyromegaly with prominent right atrial enlargement. No peric ardial effusion. Thoracic aorta is normal in caliber with no dissection. No pathologically enlarged t horacic lymphadenopathy. Visualized upper abdomen is unremarkable. Mild thoracic spondylosis with chr onic appearing mild anterior wedging at T7 and T8. IMPRESSION: 1. No pulmonary embolism. 2. Right hilar predominant mild thyromegaly with prominent right atrial enlargement. 3. Enlargement of the central pulmonary arteries consistent with pulmonary arterial hypertension. 4. Small region of likely air trapping at the apical left upper lobe suggestive of air-trapping such as in the setting of small airway disease. Reviewed, dictated and finalized at location A. IMPRESSION: 1. No pulmonary embolism. 2. Right hilar predominant mild thyromegaly with prominent right atrial enlarge ment. 3. Enlargement of the central pulmonary arteries consistent with pulmonary ita rial hypertension. 4. Small region of likely air trapping at the apical left upper lobe suggestive of air-trapping such as in the setting of small airway disease.
--- NOTE | 2023-11-28 17:26 | ECG_ITS ---
SEE SCANNED COPY FOR CONFIRMED REPORT MTDD
--- NOTE | 2023-11-28 20:51 | ECG_ITS ---
SEE SCANNED COPY FOR CONFIRMED REPORT MTDD
[2023-11-28 20:52] VITALS: BP 158/122; PULSE 84; RESP 20; O2SAT 95
[2023-11-28 21:17] LABS: Basophils Percent Auto 0.4 % (0.2-1.2); Eosinophils Absolute Auto 0.1 K/mm3 (0-0.3); Eosinophils Percent Auto 1.2 % (0-4.4); Hematocrit 51.8 % (37.0-47.0); Hemoglobin 16.8 g/dL (12.0-15.0); Immature Granulocyte Absolute 0.03 K/mm3 (0.00-0.031); Immature Granulocyte Percent A 0.3 % (0-0.5); Lymphocytes Absolute Auto 2.06 K/mm3 (0.9-3.2); Lymphocytes Percent Auto 20.9 % (18.3-44.2); Mean Corpuscular HGB Conc 32.4 g/dl (32-36); Mean Corpuscular Hemoglobin 29.4 pg (26-34); Mean Corpuscular Volume 90.6 fl (80-100); Mean Platelet Volume 12.1 fl (7.4-10.4); Monocytes Absolute Auto 0.4 K/mm3 (0.1-0.6); Monocytes Percent Auto 4.1 % (2.6-8.5); Neutrophils Absolute Auto 7.2 K/mm3 (1.3-6.7); Neutrophils Percent Auto 73.1 % (45.5-73.1); Platelet Count Result 180 k/mm3 (150-375); Red Blood Count 5.72 M/mm3 (4.2-5.4); White Blood Count 9.9 K/mm3 (4.5-10.0)
[2023-11-28 21:19] LABS: Estimated CRCL calculation 96 ml/min; Estimated Glomerular Filt Rate 53
[2023-11-28 21:27] LABS: Alanine Aminotransferase 27 U/L (6-35); Albumin Level 5.3 g/dL (3.5-5.1); Alkaline Phosphatase 71 U/L (38-126); Anion Gap 17 mmol/L (4-12); Aspartate Amino Transferase 40 U/L (14-36); Bilirubin,Total 3.1 mg/dL (0.2-1.3); Blood Urea Nitrogen 13 mg/dL (7-17); Calcium 9.9 mg/dL (8.4-10.2); Carbon Dioxide 21 mmol/L (22-30); Chloride 104 mmol/L (98-107); Estimated CRCL calculation 104 ml/min; Estimated Glomerular Filt Rate 59; Glucose 130 mg/dL (65-110); Potassium 4.4 mmol/L (3.4-5.0); Sodium 142 mmol/L (137-145)
[2023-11-28 21:28] LABS: Appearance Urine Clear (Clear); Bacteria Urine Rare /hpf; Bilirubin Urine Negative (Negative); Blood Urine Negative (Negative); Color Urine Yellow (Yellow); Glucose Urine UA Negative (Negative); Ketones Urine Negative (Negative); Leukocyte Esterase Ur 2+ LEU/UL (Negative); Nitrate Urine Negative (Negative); Non Pathogenic Casts 0-2; Protein Urine Trace mg/dL (Negative); Specific Grav Ur 1.009 (1.001-1.035); Squamous Epithelial Cell Urine Few /hpf (Few); WBC Urine 21-50 /hpf (0-3); pH Urine 6.5 (5.0-9.0)
[2023-11-28 21:33] LABS: INR 1.1; Partial Thromboplastin Time 30.4 Seconds (22.3-36.8)
[2023-11-28 21:39] LABS: Add Urine Microscopic? YES; NT Pro B Type Natriuretic Pept 1650 pg/mL (19.9-100); Troponin I < 0.012 ng/mL (0.000-0.034)
[2023-11-28 21:55] LABS: Lactic Acid Reflex 1.3 mmol/L (0.7-2.0)
[2023-11-28 22:22] LABS: Influenza A QL RT-PCR Negative (Negative); Influenza B QL RT-PCR Negative (Negative); RSV RNA, RT-PCR Negative (Negative); SARS-CoV-2 RNA PCR Negative (Negative)
[2023-11-28 22:30] VITALS: BP 132/101; PULSE 73; RESP 14; O2SAT 95
--- NOTE | 2023-11-28 22:33 | ED.GENADULT ---
HPI - General Adult General Chief complaint: Arrhythmia/Palpitations Stated complaint: CHEST FLUTTERING Time Seen by Provider: 11/28/23 20:46 History of Present Illness HPI narrative: This is a 28-year-old female presenting abnormal echocardiogram. Patient has been having 6 months of progressive hoarseness on exertion. She has also been having palpitations. At this point patient is unable to walk to the restroom and back without short of breath and diaphoretic. She had an outpatient echocardiogram earlier today which showed severe right strain with bowing of the septum. She was then sent to the ED for further evaluation. Patient symptoms been ongoing for 6 months. She was on OCPs but stopped them when she became short of breath she was concerned that she was at risk for blood clots. She denies fevers chills productive cough. She has had swelling of her legs bilaterally to the ankle. Related Data Home Medications Medication Instructions Recorded Confirmed metformin 500 mg tablet 500 mg PO TID 08/27/21 11/28/23 spironolactone 100 mg tablet 100 mg PO DAILY 08/27/21 11/28/23 Allergies Allergy/AdvReac Type Severity Reaction Status Date / Time sumatriptan Allergy Unknown Dizziness Verified 11/28/23 17:23 [facility] Past Medical History Medical History Abnormal echocardiogram Abnormal EKG Anxiety Asthma Bilateral lower extremity edema BMI 40.0-44.9, adult Cerumen impaction ARENAS (dyspnea on exertion) Encounter to establish care Environmental and seasonal allergies Headache Heart murmur Hypersomnia Hypertension Migraine headache Morbid obesity with BMI of 45.0-49.9, adult Nausea & vomiting PCOS (polycystic ovarian syndrome) Severe pulmonary hypertension Severe right ventricular systolic dysfunction Skin avulsion Snoring Surgical History Surgical History History of wisdom tooth extraction Family History Family History Father Depression Anxiety Mother , liver failure Alcoholism Hypertension Depression Anxiety Liver failure Grandparent Diabetes mellitus Hypertension Depression Anxiety Other Family history non-contributory Social History Social History Smoking status: Former smoker Alcohol intake: current Alcohol use details: socially Substance use: current Substance use type: marijuana Last use: weekends Lack of Transportation: No Lack of Food: Sometimes True Current Housing: I Have Housing Concerned About Future Housing: No Difficulty Paying Gas/Electric Bills: No Difficulty Paying for Meds: No Currently Unemployed: No Education: Bachelor's Degree Difficulty w/ Childcare or Family Care: No Living arrangements: alone Gender identity (if verbalized by the patient): Female Exam Narrative: APPEARANCE: Patient is obese, diaphoretic Head: atraumatic. EYES: EOMI, NOSE: Atraumatic NECK: Trachea midline RESPIRATORY: tachypneic, there to auscultation CARDIOVASCULAR: tachycardic ABDOMINAL: Non-distended obese MUSCULOSKELETAl: No obvious deformities NEURO: Alert. Moving 4/4 extremities SKIN:: diaphoretic PSYCHIATRIC: Normal affect Course Vital Signs Vital signs: Vital Signs Pulse Rate 84 11/28/23 20:52 Respiratory Rate 20 11/28/23 20:52 Blood Pressure 158/122 H 11/28/23 20:52 Pulse Oximetry 95 11/28/23 20:52 Pulse Rate 73 11/28/23 22:30 Respiratory Rate 14 11/28/23 22:30 Blood Pressure 132/101 H 11/28/23 22:30 Pulse Oximetry 95 11/28/23 22:30 Oxygen Delivery Room Air 11/28/23 21:14 Medical Decision Making MDM Narrative Medical decision making narrative: -Course: 28 year old female sent to the ED for a echocardiogram showing severe right ventricle strain. CTA showe
[2023-11-29] VITALS (11 sets, daily range): BP systolic 128–153; BP diastolic 83–113; PULSE 74–117; RESP 18–24; TEMP 36.5–36.7; O2SAT 93–100; BMI 48.1
--- NOTE | 2023-11-29 00:01 | ECG_ITS ---
SEE SCANNED COPY FOR CONFIRMED REPORT MTDD
[2023-11-29 00:19] LABS: Troponin I < 0.012 ng/mL (0.000-0.034)
--- NOTE | 2023-11-29 00:30 | PM.IMHP ---
H&P: HPI History of Present Illness Date/Time: 11/29/23 00:30 Chief Complaint: shortness of breath Narrative: patient is a 28-year-old morbidly obese came to hospital complaining of shortness of breath the patient has history of severe right ventricle hypertrophy has been in the hospital recently as well. Denied chest pain no shortness of bread. She does have history of migraine headaches and takes Advil. Today patient started to get more short of breath and T no urgency frequency of urination chest pain patient compliant with her medications at home continue on scene singular, Symbicort Review of Systems Review of Systems: All systems reviewed & are unremarkable except as noted in HPI and below PMFSH Past Medical History Medical History Abnormal echocardiogram Abnormal EKG Anxiety Asthma Bilateral lower extremity edema BMI 40.0-44.9, adult Cerumen impaction ARENAS (dyspnea on exertion) Encounter to establish care Environmental and seasonal allergies Headache Heart murmur Hypersomnia Hypertension Migraine headache Morbid obesity with BMI of 45.0-49.9, adult Nausea & vomiting PCOS (polycystic ovarian syndrome) Severe pulmonary hypertension Severe right ventricular systolic dysfunction Skin avulsion Snoring Surgical History Surgical History History of wisdom tooth extraction Family History Family History Father Depression Anxiety Mother , liver failure Alcoholism Hypertension Depression Anxiety Liver failure Grandparent Diabetes mellitus Hypertension Depression Anxiety Other Family history non-contributory Social History Social History Smoking status: Former smoker Alcohol intake: current Alcohol use details: socially Substance use: current Substance use type: marijuana Last use: weekends Lack of Transportation: No Lack of Food: Sometimes True Current Housing: I Have Housing Concerned About Future Housing: No Difficulty Paying Gas/Electric Bills: No Difficulty Paying for Meds: No Currently Unemployed: No Education: Bachelor's Degree Difficulty w/ Childcare or Family Care: No Living arrangements: alone Gender identity (if verbalized by the patient): Female Meds Home Medications and Allergies Home Medications Medication Instructions Recorded Confirmed Type metformin 500 mg tablet 500 mg PO TID 08/27/21 11/28/23 History spironolactone 100 mg tablet 100 mg PO DAILY 08/27/21 11/28/23 History inhalat.spacing dev,med. mask #1 ea 09/04/21 11/28/23 Rx (Aerochamber Plus Flow-Vu,Medium Mask) montelukast 10 mg tablet 10 mg PO DAILY #30 tabs 09/28/22 11/28/23 Rx albuterol sulfate 90 mcg/actuation 1 - 2 inh inhalation Q4H PRN 10/26/22 11/28/23 Rx aerosol inhaler shortness of breath or wheezing #8.5 grams budesonide-formoterol HFA 80 2 puff inhalation Q12H #10.2 grams 02/25/23 11/28/23 Rx mcg-4.5 mcg/actuation aerosol inhaler (Symbicort) ipratropium 0.5 mg-albuterol 3 mg 3 ml inhalation QID PRN shortness 05/27/23 11/28/23 Rx (2.5 mg base)/3 mL nebulization of breath or wheezing #180 mL soln metoprolol succinate 50 mg 50 mg PO DAILY #90 tabs 08/27/23 11/28/23 Rx tablet,extended release 24 hr rimegepant 75 mg disintegrating 75 mg PO DAILY PRN migraine 08/27/23 11/28/23 Rx tablet (Nurtec ODT) headache #18 tabs amitriptyline 10 mg tablet 30 mg PO QHS #270 tabs 09/20/23 11/28/23 Rx furosemide 20 mg tablet (Lasix) 20 mg PO QAM PRN edema #30 tabs 11/28/23 11/28/23 Rx Allergies Allergy/AdvReac Type Severity Reaction Status Date / Time sumatriptan Allergy Unknown Dizziness Verified 11/28/23 17:23 Vital Signs Vital Signs - 24 hr 11/28/23 21:14 11/28/23 20:52 11/28/23 22:30 Pulse Rate 84 73 Re
[2023-11-29 01:18] LABS: Glucose Point of Care 120 mg/dl (65-105)
--- NOTE | 2023-11-29 01:30 | ADMGEN ---
This patient, Court Agudelo, was admitted to IMU Room 214-01. Patient/family oriented to hospital policies and general routines including ID bracelet, bed and alarms, visiting hours, pain management, procedures, bathroom and other care routines, personal items, smoking policy, room service/diet, and visiting hours. Information on how to activate the Rapid Response Team has been discussed. Patient/Family are encouraged to report perceived risks to care and to ask questions if they do not understand what they are told or what they should do.
[2023-11-29] MEDS: IPRATROPIUM 0.5 MG/ALBUTEROL SULFATE 2.5 MG AMPUL.NEB 3 ML INHALATION (03:59)
[2023-11-29 04:17] LABS: Hematocrit 44.9 % (37.0-47.0); Hemoglobin 14.5 g/dL (12.0-15.0); Mean Corpuscular HGB Conc 32.3 g/dl (32-36); Mean Corpuscular Hemoglobin 29.4 pg (26-34); Mean Corpuscular Volume 91.1 fl (80-100); Platelet Count Result 151 k/mm3 (150-375); Red Blood Count 4.93 M/mm3 (4.2-5.4); Red Cell Distribution Width 14.9 % (11.5-14.5); White Blood Count 7.7 K/mm3 (4.5-10.0)
[2023-11-29 04:33] LABS: Alanine Aminotransferase 23 U/L (6-35); Albumin Level 4.4 g/dL (3.5-5.1); Alkaline Phosphatase 48 U/L (38-126); Anion Gap 7 mmol/L (4-12); Aspartate Amino Transferase 34 U/L (14-36); Bilirubin,Total 2.7 mg/dL (0.2-1.3); Blood Urea Nitrogen 12 mg/dL (7-17); Calcium 9.1 mg/dL (8.4-10.2); Carbon Dioxide 25 mmol/L (22-30); Chloride 105 mmol/L (98-107); Estimated CRCL calculation 115 ml/min; Estimated Glomerular Filt Rate > 60; Glucose 114 mg/dL (65-110); Potassium 3.9 mmol/L (3.4-5.0); Sodium 137 mmol/L (137-145)
--- NOTE | 2023-11-29 07:59 | PM.CNCAR ---
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 There is need for complete hemodynamic assessment of this lesion with advanced imaging and likely right and left heart catheterization. This needs to take place in an institution that is capable of dealing with complex congenital issue such as this. It is likely based on her echocardiographic findings that the opportunity to correct this surgically has already been missed given the evidence of severe right ventricular pressure and volume overload noted on her echo. We will facilitate this by placing referral to the department down at [place] where she can receive appropriate workup for this. This is not an emergency that needs to be dealt with in an emergent fashion. This is a unfortunately previously unrecognized congenital lesion in my opinion Hudson Mosqueda MD [facility] History of Present Illness History of Present Illness Consult date/time: 11/29/23 07:59 Reason For Visit: Pulm HTN Narrative: This is a very pleasant 28-year-old lady I am seeing at the request of the hospitalist today because of pulmonary hypertension. She has no knowledge of any cardiac or pulmonary diseases in the past and was sent to the hospital emergency room yesterday by her PCP because of findings that were noted on echocardiogram. She states that she had an echocardiogram requested because a recent appointment in their office demonstrated a cardiac murmur which had not been noted previously. The echocardiogram was done recently and was interpreted by Dr. Corbin. I did personally review the examination this morning as well. They and important findings are evidence of marked right ventricular and right atrial dilation, severe pulmonary hypertension with estimated PA pressures of 120 mmHg and clear evidence of an atrial septal defect on my personal review this is most suspicious for an ostium secundum ASD. An agitated saline contrast injection demonstrates obvious bidirectional shunting at the level of the atrial septum. Her electrocardiogram shows sinus rhythm with borderline first-degree AV block incomplete 1 right bundle branch block and a rightward axis. The patient states that she has been bothered by shortness of breath for many years as a child she noted that she was unable to participate in physical activity at the athletics as a young child because of symptoms of shortness of breath. She does not recall this ever being brought to the attention of her billing machine operator or any other physician. These symptoms have slowly got worse she is not having any other symptoms such as chest pain pressure or heaviness she has no history of palpitations or syncope. She states she has a history of asthma a history of polycystic ovaries and she is morbidly obese with a BMI of 48 Review of Systems Constitutional: Constitutional: Reports fatigue Eyes: Eyes: Reports no additional eye complaints ENT: Reports system reviewed and no additional complaints, except as documented Cardiovascular: Cardiovascular: Reports no additional cardiovascular complaints Respiratory: Respiratory: Reports dyspnea on exertion Gastrointestinal: Gastrointestinal: Reports no additional gastrointestinal complaints Musculoskeletal: Musculoskeletal: Reports no additional musculoskeletal complaints Integumentary/Breasts: Skin/Breast: Reports system reviewed and no additional complaints, except as docu Neurologic: Comments: Alert and oriented x3 Endocrine: Endocrine: Reports no additional endocrine complaints Hematologic/Lymphati
[2023-11-29] MEDS: PANTOPRAZOLE 40 MG TABLET PO (08:48)
[2023-11-29] MEDS: ENOXAPARIN 40 MG/0.4 ML SYRINGE SUB-Q (08:48)
--- NOTE | 2023-11-29 12:57 | PM.DS ---
DS: Admitting Diagnosis Discharge Date 11/29/23 Admitting Diagnosis 1. Pulmonary hypertension DS: Discharge Diagnosis Discharge Diagnosis (1) Pulmonary hypertension: Code(s): I27.20 - Pulmonary hypertension, unspecified Status: Acute (2) UTI (urinary tract infection): Code(s): N39.0 - Urinary tract infection, site not specified Status: Acute (3) Hypertension: Code(s): I10 - Essential (primary) hypertension Status: Acute (4) Anxiety: Code(s): F41.9 - Anxiety disorder, unspecified Status: Acute (5) Morbid obesity with BMI of 45.0-49.9, adult: Code(s): E66.01 - Morbid (severe) obesity due to excess calories; Z68.42 - Body mass index [BMI] 45.0-49.9, adult Status: Acute Plan UTI Urine cultures and sensitivity. Continue IV hydration. Monitor CBC CMP monitor for sepsis. Monitor vital signs Start antibiotics Rocephin Start probiotics to prevent antibiotic induced diarrhea Blood cultures Monitor for obstructive uropathy and pyelonephritis Heart failure with preserved ejection fraction. EKG Chest x-ray Lipid panel, TSH,liver function test, TTE 65% with severe right-sided LVH Daily weights Loop diuretics as indicate Patient educated about titrating diuretics at home based on weight blood pressure and symptoms. Optimize blood pressure < 130/80 Fall risk assessment Pneumonia and flu vaccine advised OBESITY Monitor physical inactivity. Stress monitoring and eating disorder. Referral to weight loss clinic. Weight bias and stigma screening. BMI Class Diet and exercise counseling done history of polycystic ovary disease currently on metformin. History of asthma continue Singulair and Symbicort history of hypertension continue metoprolol DS: Summary Hospital Course Hospital Course: Chief Complaint: ?shortness of breath Narrative: ?patient is a 28-year-old morbidly obese came to hospital complaining of shortness of breath the patient has history of severe right ventricle hypertrophy has been in the hospital recently as well.? Denied chest pain no shortness of bread.? She does have history of migraine headaches and takes Advil.? Today patient started to get more short of breath and T no urgency frequency of urination chest pain patient compliant with her medications at home continue on scene singular, Symbicort sent to the ED for a echocardiogram showing severe right ventricle strain.? CTA showed pulmonary hypertension but no evidence of pulmonary embolism.? Patient does not have a known diagnosis of pulmonary hypertension.? vital signs are stable at rest however patient is dyspneic and diaphoretic after just walking to the restroom.? She will be admitted to the hospital for further management. Significant findings: BNP 1600 UA indicative of infection.? Patient started on ceftriaxone EKG: Normal sinus rhythm with first-degree AV block, right atrial enlargement and incomplete right bundle-branch block. and diffuse T-wave inversions CTA: 1. No pulmonary embolism. 2. Right hilar predominant mild thyromegaly with prominent right atrial enlargement. 3. Enlargement of the central pulmonary arteries consistent with pulmonary arterial hypertension. 4. Small region of likely air trapping at the apical left upper lobe suggestive of air-trapping such as in the setting of small airway disease. Procedures performed: None Treatment rendered: Ceftriaxone Cardiology consulted: There is need for complete hemodynamic assessment of this lesion with advanced imaging and likely right and left heart catheterization.? This needs to take place in an institution that is capable of dealing with complex congenital issue such as this.? It is likely based on her echocardiographic findings that the opportunity to correct this surgically has already been missed given the evidence of severe right ventricular pressure and volume overload noted on her echo.? We will facilitate this by placing refer
== END 2023-11-29 14:25 | disposition home or self-care (01) ==
LOC: ANHED 22:45 → ANHIMU 11-29 03:06
PROVIDERS: Admitting Provider Internal Medicine; Emergency Provider Emergency Medicine; PCP Nurse Practitioner Family; Visit Provider Internal Medicine
DX: I27.20 Pulmonary hypertension, unspecified (principal); Q21.10 Atrial septal defect, unspecified; I11.0 Hypertensive heart disease with heart failure; I50.9 Heart failure, unspecified; N39.0 Urinary tract infection, site not specified; R93.1 Abnormal findings on diagnostic imaging of heart and coronary circulation; J45.909 Unspecified asthma, uncomplicated; E28.2 Polycystic ovarian syndrome; F41.9 Anxiety disorder, unspecified; E66.01 Morbid (severe) obesity due to excess calories; Z68.42 Body mass index [BMI] 45.0-49.9, adult; Z20.822 Contact with and (suspected) exposure to COVID-19; Z79.84 Long term (current) use of oral hypoglycemic drugs; Z87.891 Personal history of nicotine dependence; F12.90 Cannabis use, unspecified, uncomplicated; Z79.51 Long term (current) use of inhaled steroids
CPT/HCPCS: 36415; 71275; 80053; 81001; 81025; 82948; 83605; 83880; 84484; 85025; 85027; 85610; 85730; 87086; 87088; 87637; 93005; 94640; 96365; 96372; 99285; A9270; G0378; J0696; J1650; Q9967

== ENCOUNTER 2024-09-14 16:50 | Emergency (ER) | payer OTHER, SELFPAY ==
--- NOTE | ~2024-09-14 | XR_ITS ---
EXAMINATION: XR chest 2V Exam Date/Time: 09/14/2024 17:15 CDT HISTORY: cough/sob Comparison: CTPA 11/28/2023. RESULT: Lines, tubes, and devices: None. Lungs and pleura: Low volumes with crowding, otherwise clear. Cardiomediastinal silhouette: Stable. Dilated central pulmonary arteries as can be seen with pulmona ry artery hypertension. Other: No acute osseous or upper abdominal finding. IMPRESSION: No acute cardiopulmonary process. Reviewed, dictated and finalized at location K.
--- NOTE | 2024-09-14 16:59 | ED.URI ---
HPI - URI/Sore Throat General Chief Complaint: Upper Respiratory Infection Stated Complaint: chest congestion Time Seen by Provider: 09/14/24 16:59 Source: patient Mode of arrival: ambulatory Limitations: no limitations History of Present Illness HPI Narrative: Court is a 29-year-old female patient presenting to the clinic today with complaints of chest congestion and cough times wound once. She reports she is coughing up clear phlegm. History of pulmonary arterial hypertension. Denies any chest pain but does have some shortness of breath. Oxygen saturations 91% on room air. MD elicited complaint: sore throat and nasal congestion Related Data Home Medications ?Medication ?Instructions ?Recorded ?Confirmed ?Last Taken ?Type macitentan 10 mg tablet 10 mg PO DAILY 02/20/24 04/08/24 Unknown History tadalafil (pulm. hypertension) 20 40 mg PO DAILY 02/20/24 04/08/24 Unknown History mg tablet (pulmonary hypertension) sotatercept-csrk 60 mg subcut 04/08/24 04/08/24 Unknown History subcutaneous kit (Winrevair) Allergies Allergy/AdvReac Type Severity Reaction Status Date / Time sumatriptan Allergy Unknown Dizziness Verified 09/14/24 17:10 Review of Systems Review of Systems: Pertinent positives per HPI. Patient denies any fever, chills, rash, headache, visual changes, dizziness, chest pain, palpitations, nausea, vomiting, diarrhea, constipation, abdominal pain, or any urinary issues. [facility] Past Medical History Medical History (Updated 09/14/24 @ 17:50 by Dino Funk APRN) Nocturnal hypoxemia Snoring Severe right ventricular systolic dysfunction Severe pulmonary hypertension Abnormal EKG Abnormal echocardiogram Bilateral lower extremity edema ARENAS (dyspnea on exertion) Heart murmur Hypertension Morbid obesity with BMI of 45.0-49.9, adult Migraine headache Headache Nausea & vomiting Skin avulsion PCOS (polycystic ovarian syndrome) Cerumen impaction BMI 40.0-44.9, adult Hypersomnia Environmental and seasonal allergies Asthma Encounter to establish care Anxiety Surgical History Surgical History History of wisdom tooth extraction Family History Family History Father Anxiety Depression Mother , liver failure Alcoholism Anxiety Depression Liver failure Hypertension Grandparent Diabetes mellitus Anxiety Depression Hypertension Artificial cardiac pacemaker Other Family history non-contributory Social History Social History Smoking packs per day: 0.5 Smoking cigarettes per day: 10.0 Years smoked: 3 Smoking pack-years: 1.50 Smoking status: Former smoker Alcohol intake: current Drinks per week: 1 Alcohol use details: socially Substance use: current Substance use type: marijuana Last use: weekends Do You Feel Safe in your Home?: Yes Lack of Transportation: No Lack of Food: Never True Current Housing: I Have Housing Concerned About Future Housing: No Difficulty Paying Gas/Electric Bills: No Difficulty Paying for Meds: No Currently Unemployed: No Education: Bachelor's Degree Difficulty w/ Childcare or Family Care: No Living arrangements: alone Gender identity (if verbalized by the patient): Female Spiritual care concerns: No Comments At the time of my signature, I reviewed and agree with the nursing past medical, surgical, social, and family history. There is no relevant family history pertinent to the patient complaint. Exam Narrative: General: Well-developed, morbidly obese, in no apparent distress Head: Normocephalic, atraumatic Eyes: Pupils equally round and reactive to light bilaterally, EOM intact, sclera and conjunctive clear, no discharge, lids normal Ears: TMs intact and clear, ear canals clear, no drainage, grossly hearing normal. Nose: Nares patent, no discharge, no inflammation, no sinus tenderness. Mouth: Oral pharynx without lesions or masses, good dentition, MMM. Neck: Supple, trachea midline, no enlargement of anterior or posterior cervical nodes, no thyroid masses or goiter palpable. Cardio: Regular rate and rhythm, s1 and s2 normal, no murmur appreciated. Resp: Inspiratory wheezing with expiratory rhonchi, no rales or rubs Course Course Emergency Course: Portions of this record may have been created with voice recognition software. Level of Care: Express Care Visit Vital Signs Vital signs: Vital Signs Temperature 37.3 C 09/14/24 17:07 Pulse Rate 106 H 09/14/24 17:07 Respiratory Rate 18 09/14/24 17:07 Blood Pressure 110/82 09/14/24 17:07 Pulse Oximetry 91 09/14/24 17:07 Oxygen Delivery Room Air 09/14/24 17:07 Temperature 37.3 C 09/14/24 17:07 Pulse Rate 106 H 09/14/24 17:07 Respiratory Rate 18 09/14/24 17:07 Blood Pressure 110/82 09/14/24 17:07 Pulse Oximetry 91 09/14/24 17:07 Oxygen Delivery Room Air 09/14/24 17:07 Vital signs reviewed MDM - URI/Sore Throat MDM Narrative Medical decision making narrative: At the time of visit patient is resting comfortably on the exam table. Patient appears to be nontoxic. Diagnostics: Chest x-rays negative for any acute cardiopulmonary process. Plan: I suspect patient has bronchitis. Prescription for azithromycin, prednisone, and albuterol inhaler was sent to the pharmacy. Supportive measures were discussed with the patient and they voiced understanding discharge instructions and agrees to treatment plan. Return precautions reviewed Differential Diagnosis Differential diagnosis: Likely upper respiratory infection, otitis media, sinusitis, viral infection, bronchitis, influenza, pharyngitis and other (COVID) Imaging Data Radiologist's impression: ITS Impressions Chest X-Ray 09/14/24 17:30 IMPRESSION: No acute cardiopulmonary process. Discharge Plan Discharge Clinical Impression: Bronchitis Patient Disposition: Home, Self-Care Condition: Stable Instructions: Antibiotic Form, Acute Bronchitis (ED) Additional Instructions: Take prescription medications only as prescribed-albuterol inhaler, prednisone, and azithromycin Increase fluids and stay well hydrated Tylenol/motrin for pain/fever Flonase and OTC antihistamines as directed Vicks vapor rub to open sinuses Sinus rinses for congestion Cepacol spray, cough drops, throat lozenges, warm tea with honey/lemon, gargle salt water to soothe throat BRAT diet for diarrhea Clear liquids x 24 hours then advance as tolerated for nausea/vomiting Go to the ED if you develop a worsening in your condition- high fever not controlled by Tylenol or Motrin, dehydration, weakness, lethargy, shortness of breath, or chest pain. Follow up with your PCP in 3-5 days if symptoms persist. Patient Language: Sammarinese Prescriptions: New azithromycin 250 mg tablet See Rx Instructions .ROUTE .COMPLEX Qty: 6 0RF Rx Instructions: For 250 mg dose pack: take 500 mg today (day 1), then 250 mg for 4 days (days 2-5) prednisone 20 mg tablet 40 mg PO DAILY 5 Days Qty: 10 0RF albuterol sulfate 90 mcg/actuation HFA aerosol inhaler 2 puff inhalation Q4-6H PRN (Reason: shortness of breath or wheezing) 30 Days Qty: 8.5 0RF No Action (DME) Aerochamber Plus Flow-Vu,M Msk Spacer See Rx Instructions .Route Qty: 1 0RF Rx Instructions: As directed Winrevair 60 mg kit subcut spironolactone 100 mg tablet 100 mg PO DAILY Qty: 90 3RF amitriptyline 10 mg tablet 30 mg PO QHS Qty: 270 0RF metformin 500 mg tablet extended release 24 hr 1,000 mg PO BID Qty: 120 11RF Rx Instructions: start 1 tab daily x1 week and increase by 1 tab each week to 2 tabs 2x/day tadalafil (pulm. hypertension) 20 mg tablet 40 mg PO DAILY macitentan 10 mg tablet 10 mg PO DAILY bumetanide 1 mg tablet 1 mg PO .COMPLEX Qty: 180 3RF Rx Instructions: take 1 tab by mouth daily. May take an additional 1 tab as needed. montelukast 10 mg tablet 10 mg PO DAILY Qty: 90 3RF metoprolol tartrate 25 mg tablet 25 mg PO BID Qty: 90 3RF Follow-up/Referrals: Connie Cotto NP [Primary Care Provider] - Time of Disposition: 17:50 Quality NIHSS Nursing Documentation ED NIHSS nursing documentation: reviewed/agree
[2024-09-14 17:07] VITALS: BP 110/82; PULSE 106; RESP 18; TEMP 37.3; O2SAT 91
[2024-09-14] MEDS: IPRATROPIUM 0.5 MG/ALBUTEROL SULFATE 2.5 MG AMPUL.NEB 3 ML INHALATION (17:44)
[2024-09-14 18:11] VITALS: O2SAT 94
--- OUTSIDE RECORDS SUMMARY | 2024-09-14 19:03 | XMS_ITS ---
Author Organization Cardiology Physician [facility] Address [address] [place], [place] [id number] Care Team Providers Care Opthalmic Tech Name Role Phone Juvenal Butcher Primary Care Provider Unava ilALEJANDRO Galindo Unavailable [phone] REASON FOR VISIT Work Note Encounters Encounter Location Date Provider Diagnosis Cardiology [facility] [address] [place], [place] [id number] 01/24/2024 ALEJANDRO MAY Plan Of Treatment No Information Progress Notes * Court BALTAZARDOB: [birth year] (29 yo F)Acc No.[id number]:01/24/2024 Patient: Alex KIMBROUGH Court :1995 A ge:29 Y S ex:Female Address:[address] [place], [address] * true * Date: Generated for Printi ng/Faxing/eTransmitting on: 0 09/14/2024 08:02 PM EDT
--- OUTSIDE RECORDS SUMMARY | 2024-09-14 19:03 | XMS_ITS ---
Author Organization Cardiology Physician [facility] Address [address] [place], [place] [id number] Care Team Providers Care Repacker Name Role Phone Juvenal Butcher Primary Care Provider ALEJANDRO Carty [phone] REASON FOR VISIT Authorizations from Insurance Encounters Encounter Location Date Provider Diagnosis Cardiology [facility] [address] [place], [place] [id number] 01/20/2024 ALEJANDRO MAY Plan Of Treatment No Information Progress Notes * Court BALTAZARDOB: [birth year] (29 yo F)Acc No.[id number]:01/20/2024 Patient: Alex GREYALEXYCourt :1995 A ge:29 Y S ex:Female [address] [place], [address] * true * Date: Generated for Printi ng/Faxing/eTransmitting on: 0 09/14/2024 08:03 PM EDT
--- OUTSIDE RECORDS SUMMARY | 2024-09-14 19:03 | XMS_ITS | Referral Summary ---
Author Organization [facility] [place] [address] Address [address] [place] [address] Care Team Providers Care Electrical Control Assembler Name Role Phone Connie Cotto NP Primary Care Provider [phone] Allergies Active Allergy Reactions Criticality Noted Date Comments Sumatriptan Dizziness,Other (See comments),Shortness of breath,Sweating,Unknown High 12/27/2023 dizziness Medications amitriptyline (ELAVIL) 10 mg tablet Take by mouth nightly Active metFORMIN (GLUCOPHAGE) 500 mg tablet Take 1 tablet (500 mg total) by mouth 3 (three) times a day Active montelukast (SINGULAIR) 10 mg tablet Take 1 tablet (10 mg total) by mouth daily Active spironolactone (ALDACTONE) 100 mg tablet Take 1 tablet (100 mg total) by mouth daily Active bumetanide (BUMEX) 1 mg tablet Take 1 tablet (1 mg total) by mouth daily 02/28/2024 Active METOPROLOL SUCCINATE ORAL Take 25 mg by mouth daily Active Opsumit 10 mg tablet Take 1 tablet (10 mg total) by mouth daily 04/14/2024 Active Winrevair 60 mg kit Inject 0.7 mg/kg under the skin every 21 days 04/21/2024 Active tadalafiL (CIALIS) 20 mg tablet Take 2 tablets (40 mg total) by mouth daily 02/02/2024 Active Active Problems Problem Noted Date Diagnosed Date Pulmonary hypertension 05/04/2024 Social History Tobacco Use Types Packs/Day Years Used Date Smoking Tobacco: Former Cigarettes 0.5 3 Smokeless Tobacco: Never Tobacco Cessation:Counseling Given: Not Answered Personal Safety Answer Date Recorded Getting School Help Needed Not on file 11/28 Comments Unknown Sex and Gender Information Value Date Recorded Sex Assigned at Not on file Legal Sex Female 8:19 AM CDT Gender Identity Not on file Sexual Orientation Not on file Last Filed Vital Signs Vital Sign Reading Time Taken Comments Blood Pressure 112/82 05/04/2024 10:02 AM CDT Pulse 55 05/04/2024 10:02 AM CDT Temperature - - Respiratory Rate - - Oxygen Saturation 95% 05/04/2024 10:02 AM CDT Inhaled Oxygen Concentration - - Weight 139.3 kg (307 lb) 05/04/2024 10:02 AM CDT Height 175.3 cm (5' 9 ) 05/04/2024 10:02 AM CDT Body Mass Index 45.34 05/04/2024 10:02 AM CDT Plan of Treatment Not on file Insurance [facility] CHOICE [facility] HMO/PPO Address: [facility] [address] [place] [address] [facility] PPO [facility] HMO/PPO Address: [facility] [id number] [place] [id number] Care Teams Electrical Control Assembler Relationship Specialty Start Date End Date Connie Cotto NP [address] [id number] PCP - General Family Medicine 11/29/23
--- OUTSIDE RECORDS SUMMARY | 2024-09-14 19:03 | XMS_ITS ---
Author Organization [facility], [facility] Address [address] [place], [place] [id number] Care Team Providers Care Professor Of Literature Name Role Phone Juvenal Butcher Primary Care Provider ALEJANDRO Carty Unavailable [phone] Allergies Allergen (clinical drug ingredient) Drug/Non Drug Allergy documented on EMR Reaction Allergy Type Onset Date Status sumatriptan Sumatriptan Unknown Drug Allergy Act madyson REASON FOR VISIT R/C-MADHURI Follow up Medications Medication SIG (Take, Route, Frequency, Duration) Notes Start Date End Date Status Furosemide 20 MG 1 tablet Orally Once a day Active Amitriptyline HCl 10 MG 1 tablet at bedt polina Orally three times daily Active Montelukast Sodium 10 MG 1 tablet Orally Once a day Active Metoprolol Succinate ER 50 MG 1 tablet Orally Once a day Active Ipratropium-Albuterol 0.5-2.5 (3) MG/3ML 3 mL as needed Inhalation every 6 hrs Active Fluticasone-Salmeterol 250-50 MCG/ACT 1 puff Inhalation Twice a day Active Ondansetron HCl 4 MG 1 tablet Orally onc e every 12 hrs for 60 days Active metFORMIN HCl ER 500 MG 2 tablet with ev ening meal Orally twice daily Active Lisinopril 10 MG 1 tablet Orally Once a day Active Spironolactone 100 MG 1 tablet Orally On ce a day Active Social History Tobacco Use: Social History Observation Description Date Details (start date - stop date) Former Smoker NA - NA Tobacco Control (Standard) Question Answer Notes Tobacco use: Former smoker How long has it been since you last smoked? Grea ter than 10 years Additional Findings: Tobacco non-user Current no nsmoker AUDIT-C (Standard) Question Answer Notes Did you have a drink containing alcohol in the p ast year? No Points 0 Interpretation Negative Problems Problem Type SNOMED Code ICD Code Onset Dates Problem Status W/U Status Risk Notes Problem Ventricular trigeminy (950336187) Ventricular trigeminy (I49.8) Active confirmed Problem Atrial septal defect (disorder) (40015120) Atrial septal defect, unspecified (Q21.10) Active confirmed Problem Prediabetes (875484435) Prediabetes (R73.03) Active confirmed Problem Near syncope (346789519) Near syncope (R55) Active confirmed Problem Essential hypertension (91807282) Essential hypertension (I10) 4 Active confirmed Vital Signs Blood pressure systolic 120 mm Hg 01/24/20 24 Blood pressure diastolic 70 mm Hg 024 Heart Rate 84 /min 01/24/2024 Height 69 in 01/24/2024 Weight 316 lbs 01/24/2024 BMI 46.66 kg/m2 01/24/2024 Oximetry 94 % 01/24/2024 Height-cm 175.26 cm 01/24/2024 Weight-kg 143.34 kg 01/24/2024 Encounters Encounter Location Date Provider Diagnosis [facility], [address] [place], [place] [id number] 01/24/2024 ALEJANDROSwathi MAY Chronic right heart failure I50.812 ; Pulmonary hypertension I27.20 ; Other specified cardiac arrhythmias I49.8 ; ASD (atrial septal defect) Q21.10 ; Chronic nausea R11.0 ; Essential hypertension I10 and Morbid obesity E66.01 Assessments Encounter Date Diagnosis (ICD Code) Assessment Notes Treatment Notes Treatment Clinical Notes Section Notes 01/24/2024 Chronic right heart failure (ICD-10 - I50.812) As above. 01/24/2024 Pulmonary hypertension (ICD-10 - I27.20) The patient udnerwent a right heart catheterization and a MADHURI. No ASD or PFO was seen on MADHURI and mix presentatio of high PCWP and elevated PA with very little change to adenosine in ther vasoreactivity testing was seen. -Patient's release of information clerk is arranging for a transfer to [facility]. 01/24/2024 Other specified cardiac arrhythmias (ICD-10 - I49.8) Sinus rhythm with trigeminy. 01/24/2024 ASD (atrial septal defect) (ICD-10 - Q21.10) Ruled out. 01/24/2024 Chronic nausea (ICD-10 - R11.0) Zofran was worked preventing nausea but patient continues to vomit. 01/24/2024 Essential hypertension (ICD-10 - I10) Stable. 01/24/2024 Morbid obesity (ICD-10 - E66.01) Per PCP Plan Of Treatment Medication Medication Name Sig Start Date Stop Date Notes Ondansetron HCl 4 MG 1 tablet Orally onc e every 12 hrs for 60 days Treatment Notes Assessment Notes Chronic right heart failure As above. Pulmonary hypertension The patient udnerwent a right heart catheterization and a MADHURI. No ASD or PFO was seen on MADHURI and mix presentatio of high PCWP and elevated PA with very little change to adenosine in ther vasoreactivity testing was seen. -Patient's release of information clerk is arranging for a transfer to [facility]. Other specified cardiac arrhythmias Sinu s rhythm with trigeminy. ASD (atrial septal defect) Ruled out. Chronic nausea Zofran was worked pr eventing nausea but patient continues to vomit. Essential hypertension Stable. Morbid obesity Per PCP Next Appt Details Follow Up: prn, Reason: Progress Notes * Court BALTAZARD[address]: [birth year] (29 yo F)Acc No.[id number]:01/24/2024 Progress Notes Patient: Court DE LEON Provider: Megha May M.D. :1995 A ge:29 Y S ex:Female Date:01/24/2024 Address:[address] [place], [place] [id number] Pcp:Juvenal hawkins Subjective: * Chief Complaints: * 1 . R/LHC-MADHURI Follow up. * HPI: P EG: is a 29 year old female present for a cardiac follow up. Patient had R/L Heart Cath and MADHURI done yesterday. P atient stateshasbeen compliant with medical management. Patient has no other concerns or comments from a cardiac standpoint. lc. E chocardiography (TTE/MADHURI): Ejection fraction r esults(%): 6 3, D ate: 0 01/15/2024. * ROS: G eneral / Constitutional: Patient denies c hange in appetite, fever, weakness. F atigue D enies. R espiratory: Shortness of breath Denies. C ardiovascular: Chest pain D enies. D izziness A dmits, O cassionally. D yspnea on exertion A dmits. P alpitations A dmits, o n and off . ?Shortness of breath D enies. S welling in hands / feet A dmits, B oth legs, ankles and feet. W eakness A dmits, w ith low blood pressure . * Medical History: V entricular trigeminy, Chronic right heart failure, Atrial septal defect, unspecified, Pulmonary hypertension, Other disorders of bilirubin metabolism, Prediabetes, Near syncope, Essential hypertension. * Surgical History: w isdom tooth extraction , R/L Heart Cath & MADHURI by Dr. May 01/23/24. * Hospitalization/Major Diagno stic Procedure: h igh blood pressure 01/15/24, high blood pressure 11/2023. * Family History: M other: diagnosed with Hypertension. P aternal Grandfather: diagnosed with Heart Disease.?Maternal Grandmother: diagnosed with Hypertension, Heart Disease, Coronary Artery Disease, Diabetes. * Social History: T obacco Use: T obacco Control (Standard) T obacco use: F ormer smoker, H ow long has it been since you last smoked? G reater than 10 years, A dditional Findings: Tobacco non-user C urrent nonsmoker. D rug/Alcohol: C affeine I ntake: 1 -2 cups per day. A SHIREEN-C (Standard) D id you have a drink containing alcohol in the past year? N o, P oints 0 , I nterpretation N egative. * Medications: T aking Lisinopril 10 MG Tablet 1 tablet Orally Once a day , Taking Furosemide 20 MG Tablet 1 tablet Orally Once a day , Taking Amitriptyline HCl 10 MG Tablet 1 tablet at bedtime Orally three times daily , Taking Metoprolol Succinate ER 50 MG Tablet Extended Release 24 Hour 1 tablet Orally Once a day , Taking Ipratropium- Albuterol 0.5-2.5 (3) MG/3ML Solution 3 mL as needed Inhalation every 6 hrs , Taking Montelukast Sodium 10 MG Tablet 1 tablet Orally Once a day , Taking Spironolactone 100 MG Tablet 1 tablet Orally Once a day , Taking metFORMIN HCl ER 500 MG Tablet Extended Release 24 Hour 2 tablet with evening meal Orally twice daily , Taking Fluticasone-Salmeterol 250-50 MCG/ACT Aerosol Powder Breath Activated 1 puff Inhalation Twice a day , Taking Ondansetron HCl 4 MG Tablet 1 tablet Orally once every 12 hrs , Medication List reviewed and reconciled with the patient * Allergies: S umatriptan. Objective: * Vitals: B P (Left Arm):120/70mm Hg, HR:84/min, Oxygen sat %:94%, Wt:316lbs, Wt-k.34 kg, Ht: 69 in, Ht-cm: 175.26 cm, BMI:46.66Index, Body Surface Area: 2.64. * Examination: G eneral Examination: C onstitutional: General Appearance: well-developed, appears stated age.. Level of Distress: comfortable. Psychiatric: Mental Status: alert and normal affect. Orientation: oriented to time, place, and person. Insight: good judgment. Eyes: Lids and Conjunctivae: no discharge, pallor, xanthelasma, or arcus senilis and non-injected and anicteric. Pupils: PERRLA. ENMT: Lips, Teeth, and Gums: normal dentition. Ears: no lesions on external ear, EACs clear, TMs clear, and TM mobility normal. Nose: no lesions on external nose, septal deviation, sinus tenderness, or nasal discharge and nares patent and nasal passages clear. Oropharynx: no cyanosis or pallor. Neck: Neck: suppleness, FROM, trachea midline, and no masses. Carotid Arteries: no bruits or thrills and bilateral normal upstroke. Jugular Veins: normal jugular venous pressure and Kussmaul's sign absent. Cervical Lymph Nodes: non tender or not enlarged. Thyroid: not enlarged, non tender, or no nodules. Lungs: Respiratory Effort: unlabored. Chest Exam: no thoracic deformity or chest wall tenderness and normal curvature. Percussion: resonant. Auscultation: no wheezing, rales, or rhonchi and clear. Cardiovascular: Precordial Exam: no heaves or precordial thrills and non displaced focal PMI. Rate And Rhythm: regular. Heart Sounds: no rub, gallop, or click and normal S1 and physiologically split S2. Systolic Murmur: not heard. Diastolic Murmur: not heard. Extremities: no cyanosis, edema, or peripheral signs of emboli. Peripheral Pulses: Pulses: full and equal in all extremities except if noted. Brachial Pulse: normal. Radial Pulse: normal and normal karina's test. Ulnar Pulse: normal. Femoral Pulse: normal and no bruits appreciated. Posterior Tibialis Pulse normal. Dorsalis Pedis Pulse: normal. Popliteal Pulse: normal. Abdomen: Inspection and Palpation: non distended or tender, no bruit or masses, and soft and normal aorta. Liver: non tender or no hepatomegaly. Spleen: non tender or no splenomegaly. Musculoskeletal: Inspection: no joint tenderness or swelling and no erythema. Assessment: * Assessment: 1. P ulmonary hypertension - I27.20 (Primary) 2 . C hronic right heart failure - I50.812 3 . O ther specified cardiac arrhythmias - I49.8 4 . A SD (atrial septal defect) - Q21.10 5 . C hronic nausea - R11.0 & #160; 6 . E ssential hypertension - I10 7 . M orbid obesity - E66.01 ? Plan: * Treatment: 2. C hronic right heart failure Notes: As above. 3. O ther specified cardiac arrhythmias Notes: Sinus rhythm with trigeminy. 4. A SD (atrial septal defect) Notes: Ruled out. 5. C hronic nausea Start Ondansetron HCl Tablet, 4 MG, 1 tablet, Orally, once every 12 hrs, 60 days, 120, Refills 0.? Notes: Zofran was worked preventing nausea but patient continues to vomit. 6. E ssential hypertension Notes: Stable. 7. M orbid obesity Notes: Per PCP * Procedure Codes: G 8427 DOC MEDS VERIFIED W/PT OR RE * Preventive Medicine: Counseling: B P Management: P RE-HYPERTENSIVE FOLLOW-UP PLAN: F ollow-up 4-6 months, L IFESTYLE RECOMMENDATION: L ifestyle education regarding hypertension, P HYSICAL ACTIVITY RECOMMENDATION: E xercises education, guidance, and counseling, W EIGHT REDUCTION RECOMMENDATION: W eight control education, D IETARY RECOMMENDATIONS: D ietary management education, guidance, and counseling, B P Reassessment Plan: F ollow-up 4-6 months. C are goal follow-up plan: B [facility] counseling provided to patient L ifestyle education. E xercise: p atient educated on the benefits of exercise and cardiac health and specifically for this patient.. HCG Diet: G oals: - c ontrol lipid levels through diet, decrease cholesterol, decrease eating out, decrease glucose, decrease junk food, decrease weight, increase physical activity, promote healthy eating, three balanced meals. * Follow Up: p rn * Billing Information: * Visit Code: 71379 Office Visit, Est Pt., Level 4. * Procedure Codes: G8427 DOC MEDS VERIFIED W/PT OR RE. * Electronic signature of ALEJANDRO MAY MD on 09/14/2024 at 12:28 PM EDT Sign off status: Pending * Provider: Megha May M.D. Date: 0 01/24/2024 Generated for Delia rivas/Mica/Pallaviitting on: 0 09/14/2024 12:28 PM EDT History and Physical Notes * HPI (History of Present Illness) Category Sub-Category Detail Notes Category Not es Echocardiography (TTE/MADHURI) Ejection fraction results(%):: 63 Date:: 01/15/2024 PEG is a 29 year old female present for a cardiac follow up. Patient had R/L Heart Cath and MADHURI done yesterday. Patient states has been compliant with medical management. Patient has no other concerns or comments from a cardiac standpoint. lc Examination Category Sub-Category Detail Notes Category Not es General Examination Constitutional: General Appearance: well-developed, appears stated age.. Level of Distress: comfortable. Psychiatric: Mental Status: alert and normal affect. Orientation: oriented to time, place, and person. Insight: good judgment. Eyes: Lids and Conjunctivae: no discharge, pallor, xanthelasma, or arcus senilis and non-injected and anicteric. Pupils: PERRLA. ENMT: Lips, Teeth, and Gums: normal dentition. Ears: no lesions on external ear, EACs clear, TMs clear, and TM mobility normal. Nose: no lesions on external nose, septal deviation, sinus tenderness, or nasal discharge and nares patent and nasal passages clear. Oropharynx: no cyanosis or pallor. Neck: Neck: suppleness, FROM, trachea midline, and no masses. Carotid Arteries: no bruits or thrills and bilateral normal upstroke. Jugular Veins: normal jugular venous pressure and Kussmaul's sign absent. Cervical Lymph Nodes: non tender or not enlarged. Thyroid: not enlarged, non tender, or no nodules. Lungs: Respiratory Effort: unlabored. Chest Exam: no thoracic deformity or chest wall tenderness and normal curvature. Percussion: resonant. Auscultation: no wheezing, rales, or rhonchi and clear. Cardiovascular: Precordial Exam: no heaves or precordial thrills and non displaced focal PMI. Rate And Rhythm: regular. Heart Sounds: no rub, gallop, or click and normal S1 and physiologically split S2. Systolic Murmur: not heard. Diastolic Murmur: not heard. Extremities: no cyanosis, edema, or peripheral signs of emboli. Peripheral Pulses: Pulses: full and equal in all extremities except if noted. Brachial Pulse: normal. Radial Pulse: normal and normal karina's test. Ulnar Pulse: normal. Femoral Pulse: normal and no bruits appreciated. Posterior Tibialis Pulse normal. Dorsalis Pedis Pulse: normal. Popliteal Pulse: normal. Abdomen: Inspection and Palpation: non distended or tender, no bruit or masses, and soft and normal aorta. Liver: non tender or no hepatomegaly. Spleen: non tender or no splenomegaly. Musculoskeletal: Inspection: no joint tenderness or swelling and no erythema.
--- OUTSIDE RECORDS SUMMARY | 2024-09-14 19:03 | XMS_ITS | Patient Health Record ---
Author Organization Cardiology Physician [facility] Address [address] [facility] [facility] [place], [place] [id number] Care Team Providers Care Photolith Operator Name Role Phone MarlowJuvenal Tavares Primary Care Provider ALEJANDRO Carty Unavailable [phone] Allergies Allergen (clinical drug ingredient) Drug/Non Drug Allergy documented on EMR Reaction Allergy Type Onset Date Status sumatriptan Sumatriptan Unknown Drug Allergy Act madyson Reason For Referral Reason Right & Left Heart C ath Auth #[id number] Diagnosis 1 Pulmonary hypertensi on (I27.20) Referred Organization Cardiology [facility] Referred Provider ALEJANDRO MAY Referred Address [address] [place] [address],[address],[place], [id number] Referred Provider Specialty Cardiology Procedure 1 R&L HRT ART/VENTRICL E ANGIO (93400) Referral Priority Routine Reason MADHURI- No auth require d Diagnosis 1 Pulmonary hypertensi on (I27.20) Referred Organization Cardiology [facility] Referred Provider ALEJANDRO MAY Referred Address [address] [place] [address],[address],[place], [id number] Referred Provider Specialty Cardiology Procedure 1 ECHO TRANSESOPHAGEAL (58272) Referral Priority Routine Medications Medication SIG (Take, Route, Frequency, Duration) Notes Start Date End Date Status Fluticasone-Salmeterol 250-50 MCG/ACT 1 puff Inhalation Twice a day Active Ondansetron HCl 4 MG 1 tablet Orally onc e every 12 hrs for 60 days Active metFORMIN HCl ER 500 MG 2 tablet with ev ening meal Orally twice daily Active Furosemide 20 MG 1 tablet Orally Once a day Active Amitriptyline HCl 10 MG 1 tablet at bedt [place] Orally three times daily Active Lisinopril 10 MG 1 tablet Orally Once a day Active Montelukast Sodium 10 MG 1 tablet Orally Once a day Active Spironolactone 100 MG 1 tablet Orally On ce a day Active Metoprolol Succinate ER 50 MG 1 tablet Orally Once a day Active Ipratropium-Albuterol 0.5-2.5 (3) MG/3ML 3 mL as needed Inhalation every 6 hrs Active Social History Tobacco Use: Social History [...] Problem Status W/U Status Risk Notes Problem Disorders of bilirubin excretion (256601403) 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 Problem Cardiac arrhythmia (172853233) Other specified cardiac arrhythmias (I49.8) Active confirmed Problem Essential hypertension (36341593) Essential hypertension (I10) Active confirmed Problem Chronic heart failure (57029599) Chronic right heart failure (I50.812) Active confirmed Problem Prediabetes (064621020) Prediabetes (R73.03) Active confirmed Problem Atrial septal defect (disorder) (35199179) Atrial septal defect, unspecified (Q21.10) Active confirmed Problem 255924100 Morbid obesity (E66.01) Active confirmed Problem Pulmonary hypertension (80747765) Pulmonary hypertension (I27.20) Active confirmed Problem Near syncope (748293552) Near syncope (R55) Active confirmed Problem Ventricular trigeminy (441848678) Ventricular trigeminy (I49.8) Active confirmed Vital Signs Heart Rate 84 /min 01/24/2024 Height-cm 175.26 cm 01/24/2024 Oximetry 94 % 01/24/2024 Blood pressure diastolic 70 mm Hg 01/24/2024 Weight-kg 143.34 kg 01/24/2024 Height 69 in 01/24/2024 Blood pressure systolic 120 mm Hg 01/24/2024 Weight 316 lbs 01/24/2024 BMI 46.66 kg/m2 01/24/2024 Procedures Procedure Date Ordered Date Performed Result Body Sit e CARDIAC CATHETERIZATION 01/17/2024 N/A Encounters Encounter Location Date Provider Diagnosis Cardiology [address] [place], [place] [id number] 01/17/2024 ALEJANDRO LALO Chronic right heart failure I50.812 ; Pulmonary hypertension I27.20 ; Morbid obesity E66.01 ; Other specified cardiac arrhythmias I49.8 ; ASD (atrial septal defect) Q21.10 and Chronic nausea R11.[address] [place], [place] [id number] 01/24/2024 ALEJANDRO LALO Chronic right heart failure I50.812 ; Pulmonary hypertension I27.20 ; Other specified cardiac arrhythmias I49.8 ; ASD (atrial septal defect) Q21.10 ; Chronic nausea R11.0 ; Essential hypertension I10 and Morbid obesity E66.01 Cardiology [address] [place], [place] [id number] 01/07/[address] [place], [place] [id number] 01/17/2024 ALEJANDRO [address] [place], [place] [id number] 01/20/2024 ALEJANDRO LALO [address] [place], [place] [id number] 01/24/2024 ALEJANDRO LALO Assessments Encounter Date Diagnosis (ICD Code) Assessment Notes Treatment Notes Treatment Clinical Notes Section Notes 01/17/2024 Chronic right heart failure (ICD-10 - I50.812) As above. 01/17/2024 Pulmonary hypertension (ICD-10 - I27.20) The patient has chronic right-sided heart failure with severe pulmonary hypertension. Possible ASD. Patient was recently hospitalized with acute heart failure exacerbation. LV function is normal. Following closely with able bodied watchman.- The patient will be needing a right heart catheterization, left heart catheterization with vasoreactivity testing. We will expedite this.- Transesophageal echocardiogram for further assessment of ASD as below. 01/24/2024 Chronic right heart failure (ICD-10 - I50.812) As above. 01/24/2024 Other specified cardiac arrhythmias (ICD-10 - I49.8) Sinus rhythm with trigeminy. 01/17/2024 Morbid obesity (ICD-10 - E66.01) Per PCP 01/24/2024 Pulmonary hypertension (ICD-10 - I27.20) The patient udnerwent a right heart catheterization and a MADHURI. No ASD or PFO was seen on MADHURI and mix presentatio of high PCWP and elevated PA with very little change to adenosine in ther vasoreactivity testing was seen. -Patient's able bodied watchman is arranging for a transfer to [facility]. 01/24/2024 ASD (atrial septal defect) (ICD-10 - Q21.10) Ruled out. 01/17/2024 Other specified cardiac arrhythmias (ICD-10 - I49.8) Sinus rhythm with trigeminy. 01/24/2024 Chronic nausea (ICD-10 - R11.0) Zofran was worked preventing nausea but patient continues to vomit. 01/17/2024 ASD (atrial septal defect) (ICD-10 - Q21.10) Further evaluation with transesophageal echocardiogram. 01/17/2024 Chronic nausea (ICD-10 - R11.0) The patient has been presenting with worsening nausea. Patient reports that she might have been diagnosed with gastroparesis. Zofran appears to alleviate her symptoms.- Zofran 4 mg every 12 hours as needed. 01/24/2024 Essential hypertension (ICD-10 - I10) Stable. 01/24/2024 Morbid obesity (ICD-10 - E66.01) Per PCP Plan Of Treatment Pending Test Test Name Order Date Electrocardiogram (EKG) 01/17/2024 Transesophageal Echocardiogram (MADHURI) 06/2024 CARDIAC CATHETERIZATION 01/17/2024 Insurance Providers Payer Name Payer Address Payer Phone Subscriber Number Group Number Insured Name Patient Relationship to Insured Coverage Start Date Coverage End Date [facility] [address] [place] [id number] Self - patient is the insured Medical (General) History Medical History History ICD Code Ventricular trigeminy I49.8 Chronic right heart failure I50.812 Atrial septal defect, unspecified Q21.10 Pulmonary hypertension I27.20 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 May 4 Hospitalization History Reason Date(Month/Year) high blood pressure 11/2023 high blood pressure 01/15/24
--- OUTSIDE RECORDS SUMMARY | 2024-09-14 19:03 | XMS_ITS | CONTINUITY OF CARE DOCUMENT ---
Author Name clarence lima Address Unknown Organization [facility] Address [address] [place] [address] Phone [phone] Care Team Providers Care Licensed Customs Broker Name Role Phone Moreno Gilmore MD Unavailable SUSANA RODRIGUEZ MD Unavailable [phone] INSURANCE PROVIDERS Payer name Policy type / Coverage type [place] party ID [id number]
--- OUTSIDE RECORDS SUMMARY | 2024-09-14 19:03 | XMS_ITS | Data Portability ---
Author Organization [facility] Address [address] [place] [place] [address] [place] [address] Care Team Providers Care Radiology Therapist Name Role Phone BRANDO DRUMMOND Primary Care Provider Assessment Encounter Date Assessment Date Assessment LastModified by Organization Details LastModified Time 06/15/2022 06/15/2022 Annual gynecological exam performed. Patient will come back in a year unless there are new symptoms. Suggest Calcium with Vitamin D if not eating in diet. Patient advised to get annual flu shot. Recommend yearly physicals and preform monthly breast exams. Genetic testing is available for patients with family history of cancer. Engage in safe sexual practices, use condoms. Encouraged to have daily exercise. Avoid tobacco and illicit drugs, moderation of alcohol. If BMI greater than 25 dietary consult advised. If you have any questions please call or email. discussed importance of checking wellness labs yearly, increase spironolactone ref ocp [email or web address] Not available 06/15/2022 17:34:34 05/14/2024 05/14/2024 Annual gynecological exam performed. Patient will come back in a year unless there are new symptoms. [email or web address] Not available 04/27/2024 15:32:42 Plan of Treatment Reminders Order Date Submit Date Provider Last Modified By Organization Details Last Modified Time Details Appointments None recorded . Lab pregnanc y test, urine 2023 024 [email or web address] [place], [address], [place], [address], 10:12:42 hbcab (hepatit is B core Ab) igm, serum 2022 023 [facility] (Lab), [address], [place], [address], 3 22:09:28 HBsAg (hepatit is B surface Ag), serum 2022 023 [facility] (Lab), [address], [place], [address], 3 22:09:27 hepatiti s C virus Ab, serum 2022 023 [facility] (Lab), [address], [place], [address], 3 22:09:28 unlisted lab - HIV 1/2 antigen/ antibody , reflex confirma tion 2022 023 [facility] (Lab), [address], [place], [address], 3 22:09:27 RPR (rapid plasma reagin), serum 2022 023 [facility] (Lab), [address], [place], [address], 3 22:09:28 Referral None recorded . Procedures None recorded . Surgeries None recorded . Imaging None recorded . Medication Orders Nexplano n 68 mg subderma l implant 2023 024 [email or web address] [facility] #[id number], [address], [place], [id number], 4 10:16:25 Kelly 24 Fe 1 mg-20 mcg (24)/75 mg (4) tablet 2021 022 [email or web address] [facility] #[id number], [address], [place], [id number], 3 14:03:32 spironol actone 100 mg tablet 2021 [facility] #[id number], [address], [place], [place], [id number], 17:35:13 metronid azole 500 mg tablet 2021 [facility] #[id number], [address], [place], [place], [id number], 10:11:28 Patient TargetsNo targets recorded. Patient InstructionsNo instructions recorded. Reason for Referral None Reported. Results Created Date Observation Date Name Description Value Unit Range Abnormal Flag Note LastModifiedBy Organization Detail LastModifiedTime 06/11/2006/11/2022 VAGIN ITIS/ VAGIN OSIS, DNA PROBE sage sp. detection, direct probe Negati ve negati ve Not Available [facility] (Lab) [address] [place], [address], 06/12/2022 18:25:53 06/11/20 22 06/11/2022 VAGIN ITIS/ VAGIN OSIS, DNA PROBE gardnerella vag. detection, direct probe Positi ve negati ve abnormal Not Available [facility] (Lab) [address] [place], [address], 06/12/2022 18:25:53 06/11/20 22 06/11/2022 VAGIN ITIS/ VAGIN OSIS, DNA PROBE trichomonas vag. detection, direct probe Negati ve negati ve Not Available [facility] (Lab) [address] [place], [address], 06/12/2022 18:25:53 06/15/20 22 06/15/2022 IMAGE GUIDE D PAP, REFLE X HPV IF ASCUS ONLY image guided Pap, reflex HPV ASCUS only SEE RESULT S BELOW CASE REPOR T: Cytol ogy Gynec ologi ronnie Repor t Case: [id number] Autho selena alegria Provi saman: Lima Coles NP Colle cted: 06/15 1625 Order ing Locat ion: [place] Path[facility] logkiersten Recei gio: 06/16 0126 First Scree n: Cassidy z, Willi am, CT Rescr een: Freddy Gamboa , CT Speci men: Scree digna Pap - Image d, Cervi x STATE MENT OF ADEQU ACY: Satis facto ry for evalu ation Trans forma tion zone compo nent prese nt FINAL DIAGN OSIS: Negat madyson for Intra epith elial Leshuey lassiter or Bijal robins (NIL) . Elect meet flor ganesh d by Freddy Gamboa , CT on 06/18 at 6:19 PM ----- ----- ----- ----- ----- ----- ----- ----- ----- ----- ----- ----- ----- ----- ----- ----- ----- ---- COMME NT: Note: This speci men was revie wed by a Cytot echno logis t and/o r Patho logis t (as indic ated in this repor t) after evalu ation using the Thinp rep Imagi ng Syste m. CLINI RONNIE INFOR MATHUEY N: Menst rual Statu s: LMP (if appli cable ): 06/01 Clini ronnie Histo ry/Pr eviou s Pap: Type of Neopl breezy (if appli cable ): Signi fican t Clini ronnie Findi ngs: Other Histo ry: Hormo rene (if appli cable ): PAP EDUCA DOMO L NOTE: The Pap Test is a scree digna test with an inher ent false negat madyson rate. Liqui d-bas ed sampl ing may decre ase, but will not elimi lizabeth, false negat madyson resul ts. A negat madyson resul t does not precl ude the prese nce and/o r devel opmen t of disea se, since the prese nce of abnor mal cells in the sampl e depen ds on the locat ion of the lesio n and sampl ing techn ique. Maye nued regul ar scree digna is the best metho d of cance r preve ntion . If repor sneha cytol ogic findi ng do not corre late with physi ronnie and/o r histo rical findi ngs, furth er inves tigat ion is recom fredrick d, as clini manjit celis nted. Not Available [facility] (Lab) [address], [place], [address], 06/21/2022 02:03:58 06/15/20 22 06/15/2022 CAIN DA NAYLA I BY RT-PC R sage krusei by RT-PCR Negati ve Swab- 1 Vag/C erv/E nd Not Available [facility] (Lab) [address], [place], [address], 06/21/2022 02:03:58 06/15/20 22 06/15/2022 MOBIL UNCUS MULIE RIS/C URTIS RICHARD, RT-PC R, ONE SWAB nm bkr mobiluncus mulieris and mobiluncus curtisii by RT-PCR Negati ve Swab- 1 Vag/C erv/E nd Not Available [facility] (Lab) [address], [place], [address], 06/21/2022 02:03:59 06/15/20 22 06/15/2022 UROGE NITAL MYCOP LASMA /UREA PLASM A PANEL RT-PC R, ONESW AB nm bkr mycoplasma genitalium by RT-PCR Positi ve abnormal Swab- 1 Vag/C erv/E nd A2058 G mutat ion(s ) detec sneha. Sugge stive of Azith romyc in Resis tance . parC Fluor oquin olone mutat ions undet ermin ed. Insuf ficie nt sampl e jacqueline ntrat ion for seque ncing . *Swab -1 129:M ycopl asma genit alium by Real- Time PCR (Refl ex to Azith romyc in and Fluor oquin olone Resis tance ) - * The A2058 and A2059 nucle otide s repre sents the E. coli 23S rRNA numbe ring syste m used for publi shing commo n macro lide (e.g. Azith romyc in) antib iotic resis tance mutat ions and corre spond s to the recip rocal A2071 and A2072 nucle otide s of Mycop lasma genit alium 23S rRNA gene. The pyros equen cing assay detec ts the most frequ ently encou ntere d mutat ions that confe r Mycop lasma genit lium Azith romyc in resis tance . A2058 and A2059 mutat ions in the 23S rRNA gene accou nt for the major ity of Azith romyc in resis tant isola leigh ann. Addit ional mutat ions or acqui red genes can resul t in azith romyc in resis tance but are consi dered rare. (Jett SARMIENTO et al,. 2013. Fluor oquin olone and Macro lide Resis tance -Asso ciate d Mutat ions in Mycop lasma genit alium . J. Clin. Micro biol. 51(7) : 2245 - 2249) . *Swab -1 129:M ycopl asma genit alium by Real- Time PCR (Refl ex to Azith romyc in and Fluor oquin olone Resis tance ) - The pyros equen cing assay detec ts the most frequ ently encou ntere d mutat ions that confe r Mycop lasma genit alium Fluor oquin olone resis tance . Mutat ions withi n the conse rved Odalys lone Resis tance Deter minin g Regio n (QRDR ) of the parC gene: G241T (Gly8 1Cys) , G244A (Asp8 2Asn) , A247C (Ser8 3Arg) , G248T (Ser8 3Ile) , G259A (Asp8 7Asn) , G259C (Asp8 7His) , G259T (Asp8 7Tyr) , and A260G (Asp8 7Gly) [nucl eotid e mutat ion (ngo o-aci d subst ituti on)] accou nt for the major ity of Fluor oquin olone resis tant isola leigh ann. Addit ional mutat ions or acqui red genes can resul t in Fluor oquin olone resis tance but are consi dered rare. (Jett KA et al,. 2013. Fluor oquin olone and Macro lide Resis tance -Asso ciate d Mutat ions in Mycop lasma genit alium . J. Clin. Micro biol. 51(7) : 2245 - 2249) . Not Available [facility] (Lab) [address], [place], [address], 06/21/2022 02:03:59 06/15/20 22 06/15/2022 UROGE NITAL MYCOP LASMA /UREA PLASM A PANEL RT-PC R, ONESW AB nm bkr mycoplasma hominis by RT-PCR Negati ve Swab- 1 Vag/C erv/E nd Not Available [facility] (Lab) [address], [place], [address], 06/21/2022 02:03:59 06/15/20 22 06/15/2022 UROGE NITAL MYCOP LASMA /UREA PLASM A PANEL RT-PC R, ONESW AB nm bkr ureaplasma urealyticum by RT-PCR Negati ve Swab- 1 Vag/C erv/E nd Not Available [facility] (Lab) [address] [place], [address], 06/21/2022 02:03:59 06/15/20 22 06/15/2022 BACTE RIAL VAGIN OSIS PANEL RT-PC R, ONESW AB gardnerella vaginalis PCR Negati ve Swab- 1 Vag/C erv/E nd Not Available [facility] (Lab) [address] [place], [address], 06/21/2022 02:03:59 06/15/20 22 06/15/2022 BACTE RIAL VAGIN OSIS PANEL RT-PC R, ONESW AB atopobium vaginae PCR Negati ve Swab- 1 Vag/C erv/E nd Not Available [facility] (Lab) [address] [place], [address], 06/21/2022 02:03:59 06/15/20 22 06/15/2022 BACTE RIAL VAGIN OSIS PANEL RT-PC R, ONESW AB bacterial vaginosis associated bacteria 2 (bvab2) Negati ve Swab- 1 Vag/C erv/E nd Not Available [facility] (Lab) [address] [place], [address], 06/21/2022 02:03:59 06/15/20 22 06/15/2022 BACTE RIAL VAGIN OSIS PANEL RT-PC R, ONESW AB megasphaera species (type 1 and type 2) PCR Negati ve (Type1 ,Type2 ) Swab- 1 Vag/C erv/E nd Type1 :Nega tive Type2 :Nega tive. Not Available [facility] (Lab) [address], [place], [address], 06/21/2022 02:03:59 06/15/20 22 06/15/2022 BACTE RIAL VAGIN OSIS PANEL RT-PC R, ONESW AB lactobacillu s (bvpanel) PCR See Commen t Swab- 1 Vag/C erv/E nd L.cri spatu s: Negat madyson L.ezekiel senii : Negat madyson L.gas seri : Negat madyson L.ine rs : Posit madyson. Not Available [facility] (Lab) [address], [place], [address], 06/21/2022 02:03:59 06/15/20 22 06/15/2022 CAIN DA VAGIN ITIS PANEL RT-PC R, ONESW AB sage albicans PCR Negati ve Swab- 1 Vag/C erv/E nd Not Available [facility] (Lab) [address], [place], [address], 06/21/2022 02:04:00 06/15/20 22 06/15/2022 CAIN DA VAGIN ITIS PANEL RT-PC R, ONESW AB sage tropicalis PCR Negati ve Swab- 1 Vag/C erv/E nd Not Available [facility] (Lab) [address], [place], [address], 06/21/2022 02:04:00 06/15/20 22 06/15/2022 ACIN DA VAGIN ITIS PANEL RT-PC R, ONESW AB sage parapsilosis PCR Negati ve Swab- 1 Vag/C erv/E nd Not Available [facility] (Lab) [address], [place], [address], 06/21/2022 02:04:00 06/15/20 22 06/15/2022 CAIN DA VAGIN ITIS PANEL RT-PC R, ONESW AB sage glabrata PCR Negati ve Swab- 1 Vag/C erv/E nd Not Available [facility] (Lab) [address], [place], [address], 06/21/2022 02:04:00 02/08/20 23 02/07/2023 HEPAT ITIS B SURFA CE ANTIG EN hepatitis B surface antigen Non-re active non-re active This assay was perfo rmed using [employer] ratio n reage nts and test kits. Value s obtai adeel with other assay metho ds or kits canno t be used inter leiva eably . Not Available [facility] (Lab) [address], [place], [address], 02/08/2023 22:09:27 02/08/20 23 02/07/2023 HIV 1/2 ANTIG EN/AN TIBOD Y, REFLE X CONFI RMATI ON HIV antigen/anti body Nonrea ctive nonrea ctive HIV-1 antig en and HIV-1 /HIV- 2 antib odies were not detec sneha. No labor atory evide nce of HIV infec tion. Not Available [facility] (Lab) [address], [place], [address], 02/08/2023 22:09:27 02/08/20 23 02/07/2023 HEPAT ITIS C ANTIB AKIL SCREE N, REFLE X TO CONFI RMATI ON hepatitis C antibody Non-re active non-re active Antib odies to HCV Not Detec sneha, does not exclu de the possi bilit y of expos ure to HCV. Not Available [facility] (Lab) [address], [place], [address], 02/08/2023 22:09:28 02/08/20 23 02/07/2023 RPR SCREE N/REF NI TITER /FTA RPR screen Nonrea ctive nonrea ctive Not Available [facility] (Lab) [address], [place], [address], 02/08/2023 22:09:28 02/08/20 23 02/07/2023 HEPAT ITIS B CORE, IGM hepatitis B core IgM antibody Negati ve negati ve Not Available [facility] (Lab) [address], [place], [address], 02/08/2023 22:09:28 05/15/20 24 05/15/2024 pregn janina test, urine HCG negati ve Not Available [place] [address] [facility] [address] [place], [address], 05/15/2024 09:47:39 Result Notes None recorded. Problems Name Problem SNOMED Code Status Onset Date Resolution Date Notes Provider Name and Address Organization Details Recorded Time Polycystic ovary syndrome 679157356 Active 2019 Betty paredes, [facility] 0 11:36:30 Bacterial vaginosis 386784521 Active 2021 Kelly Brooks TAMERA- [address], [place], [address], [facility] 2 10:09:00 Problem Notes None recorded. Procedures Surgical History Date Name Laterality Status Provider Name and Address Organization Details Recorded Time 05/15/20 24 MM Nexplanon insert completed LISY VILLASENOR NP [address], [place], [address], [facility] 05/15/2024 10:11:41 06/15/20 22 Date of Last Pap Smear completed Yue Tiwari [facility] 05/14/2024 10:55:19 07/08/19 13 extraction of wisdom tooth completed Betty Graftz [facility] 03/08/2021 10:26:20 Imaging Results None recorded. Procedure Notes None recorded. Medical Equipment None Reported. Allergies No known drug allergies Medications Name Sig Start Date Stop Date Status Note LastModified by Organization Details LastModified Time metformin 500 mg tablet TAKE 1 TABLET BY MOUTH THREE TIMES DAILY active Not Available Not Available No t Available fluticasone 250 mcg-salmete rol 50 mcg/dose blistr powdr for inhalation active Not Available Not Available N ot Available ipratropium 0.5 mg-albutero l 3 mg (2.5 mg base)/3 mL nebulizatio n soln USE 3 ML VIA NEBULIZER FOUR TIMES DAILY NEEDED FOR SHORTNESS OF BREATH OR WHEEZING active Not Available Not Available No t Available albuterol sulfate 2.5 mg/3 mL (0.083 %) solution for nebulizatio n active Not Available Not Available Not Available azithromyci n 250 mg tablet TAKE 2 TABLETS BY MOUTH FOR 1 DAY THEN TAKE 1 TABLET BY MOUTH DAILY FOR 4 DAYS 05/14 completed Not Available Not Available Not Available fluconazole 150 mg tablet TAKE 1 TABLET BY MOUTH NOW. REPEAT IN 7 DAYS IF SYMPTOMS PERSIST 06/09 completed Not Available Not Available Not Available metoprolol succinate ER 50 mg tablet,exte nded release 24 hr TAKE 1 TABLET BY MOUTH DAILY 05/14 completed Not Available Not Available Not Available metronidazo le 0.75 % (37.5 mg/5 gram) vaginal gel INSERT 1 APPLICATO RFUL VAGINALLY EVERY NIGHT AT BEDTIME FOR 5 DAYS 06/09 completed Not Available Not Available Not Available prednisone 20 mg tablet TAKE 2 TABLETS BY MOUTH DAILY FOR 5 DAYS 02/07 completed Not Available Not Available Not Available spironolact one 100 mg tablet TAKE 1 TABLET BY MOUTH DAILY active Not Available Not Available No t Available sumatriptan 50 mg tablet 06/09 completed Not Available Not Available Not Available penicillin V potassium 500 mg tablet TAKE 1 TABLET BY MOUTH EVERY 12 HOURS FOR 10 DAYS 07/29 completed Not Available Not Available Not Available metronidazo le 500 mg tablet TAKE 1 TABLET BY MOUTH EVERY 12 HOURS WITH MEALS FOR 7 DAYS 02/07 completed Not Available Not Available Not Available tramadol 50 mg tablet TAKE 1 TABLET BY MOUTH EVERY 6 HOURS NEEDED FOR PAIN 01/16 completed Not Available Not Available Not Available butalbital- acetaminoph en-caffeine 50 mg-325 mg-40 mg tablet TAKE 1 TABLET BY MOUTH EVERY 6 HOURS NEEDED FOR PAIN 05/14 completed Not Available Not Available Not Available famotidine 20 mg tablet TAKE 1 TABLET BY MOUTH TWICE DAILY active Not Available Not Available No t Available amitriptyli ne 10 mg tablet TAKE 2 TABLETS BY MOUTH EVERY DAY AT BEDTIME active Not Available Not Available No t Available baclofen 10 mg tablet TAKE 1 TABLET BY MOUTH THREE TIMES DAILY FOR 5 DAYS 02/07 completed Not Available Not Available Not Available cephalexin 500 mg capsule TAKE 1 CAPSULE BY MOUTH EVERY 12 HOURS 05/14 completed Not Available Not Available Not Available lidocaine 5 % topical patch 05/14 completed Not Available Not Available Not Available sertraline 25 mg tablet TAKE 1 TABLET BY MOUTH DAILY 02/07 completed Not Available Not Available Not Available bumetanide 1 mg tablet TAKE 1 TABLET BY MOUTH DAILY active Not Available Not Available No t Available montelukast 10 mg tablet TAKE 1 TABLET BY MOUTH DAILY active Not Available Not Available No t Available furosemide 20 mg tablet TAKE 1 TABLET BY MOUTH EVERY MORNING NEEDED FOR SWELLING active Not Available Not Available No t Available levofloxaci n 500 mg tablet TAKE 1 TABLET BY MOUTH EVERY 24 HOURS FOR 7 DAYS 02/07 completed Not Available Not Available Not Available methylpredn isolone 4 mg tablets in a dose pack TAKE 6 TABLETS ON DAY 1 DIRECTED ON PACKAGE AND DECREASE BY 1 TAB EACH DAY FOR A TOTAL OF 6 DAYS 07/29 completed Not Available Not Available Not Available albuterol sulfate HFA 90 mcg/actuati on aerosol inhaler INHALE 1 TO 2 PUFFS BY MOUTH EVERY 4 HOURS NEEDED SHORTNESS OF BREATH OR WHEEZING active Not Available Not Available No t Available ondansetron 4 mg disintegrat ing tablet DISSOLVE 1 TABLET ON THE TONGUE EVERY 6 TO 8 HOURS NEEDED FOR NAUSEA OR VOMITING active Not Available Not Available No t Available fluticasone propionate 50 mcg/actuati on nasal spray,suspe nsion SHAKE LIQUID AND USE 1 SPRAY IN EACH NOSTRIL TWICE DAILY 06/09 completed Not Available Not Available Not Available metformin ER 500 mg tablet,exte nded release 24 hr TAKE 2 TABLETS BY MOUTH TWICE DAILY. START 1 TABLET DAILY FOR 1 WEEK AND. INCREASE BY 1 TABLET EACH WEEK TO 2 TABLET 2 TIMES PER DAY 05/14 completed Not Available Not Available Not Available spironolact one 50 mg tablet TAKE 1 TABLET BY MOUTH EVERY DAY 02/07 completed Not Available Not Available Not Available 07/27 () 1 mg-20 mcg (21)/75 mg (7) tablet Take 1 tablet every day by oral route. 07/29 completed Not Available Not Available Not Available .12/04 () 1.5 mg-30 mcg (21)/75 mg (7) tablet TAKE 1 TABLET BY MOUTH EVERY DAY active Not Available Not Available No t Available tadalafil 20 mg tablet TAKE TWO TABLETS BY MOUTH ONE TIME DAILY active Not Available Not Available No t Available metoprolol tartrate 25 mg tablet TAKE 1 TABLET BY MOUTH TWICE DAILY active Not Available Not Available No t Available spironolact one 07/29 completed Not Available Not Available Not Available Symbicort 80 mcg-4.5 mcg/actuati on HFA aerosol inhaler INHALE 2 PUFFS BY MOUTH EVERY 12 HOURS active Not Available Not Available No t Available Nexplanon 68 mg subdermal implant Inject 1 implant by subcutane ous route. 2023 active Not Available Not Available Not Avai lable Opsumit 10 mg tablet active Not Available Not Available No t Available 1 mg-20 mcg (24)/75 mg (4) tablet TAKE 1 TABLET BY MOUTH EVERY DAY 02/07 completed Not Available Not Available Not Available tadalafil 20 mg tablet (pulmonary hypertensio n) 05/14 completed Not Available Not Available Not Available Slynd 4 mg (28) tablet TAKE 1 TABLET BY MOUTH EVERY DAY 01/16 completed Not Available Not Available Not Available Nurtec ODT 75 mg disintegrat ing tablet DISSOLVE 1 TABLET ON THE TONGUE DAILY NEEDED FOR MIGRAINE HEADACHE active Not Available Not Available No t Available Winrevair 60 mg subcutaneou s kit active Not Available Not Available Not Available Winrevair 45 mg subcutaneou s kit active Not Available Not Available Not Available Vitals Date Recorded Body height Body mass index (BMI) Body weight Systolic blood pressure Diastolic blood pressure Provider Name and Address Organization Details Last Updated DateTime 06/09/2022 173.99 cm 45.3 kg/m2 850008.9 g 113 mm[Hg] 82 mm[Hg] Betty [facility] 2 09:52:42 Date Recorded Body height Body mass index (BMI) Body weight Systolic blood pressure Diastolic blood pressure Provider Name and Address Organization Details Last Updated DateTime 06/15/2022 173.99 cm 45.1 kg/m2 432516.3 g 126 mm[Hg] 88 mm[Hg] Betty [facility] 2 15:57:54 Date Recorded Body height Body mass index (BMI) Body weight Systolic blood pressure Diastolic blood pressure Provider Name and Address Organization Details Last Updated DateTime 02/07/2023 173.99 cm 45.1 kg/m2 080360.3 g 130 mm[Hg] 88 mm[Hg] Paulette Marin [facility] 3 14:02:21 Date Recorded Body height Body mass index (BMI) Body weight Systolic blood pressure Diastolic blood pressure Provider Name and Address Organization Details Last Updated DateTime 05/14/2024 173.99 cm 45.8 kg/m2 789492.2 7 g 124 mm[Hg] 87 mm[Hg] [facility] 4 10:59:08 Date Recorded Body height Body mass index (BMI) Body weight Systolic blood pressure Diastolic blood pressure Provider Name and Address Organization Details Last Updated DateTime 05/15/2024 173.99 cm 45.8 kg/m2 761377.2 7 g 122 mm[Hg] 72 mm[Hg] [facility] 4 09:44:58 Social History Question Answer Notes LastModified by Organizat ion Details LastModified Time Tobacco Smoking Status Former Smoker quit 2016 Luis Armando Ames [facility] 02/07/2023 13:49:26 Do You Have An Advance Directive? No [email or web address] Information not available 03/08/2021 What Is Your Level Of Alcohol Consumption? Occasional [email or web address] Information not available 05/06/2020 If You Are , What Was Your Level Of Alcohol Consumption Prior To ? None Information not available 02/07/2023 How Many Years Have You Consumed Alcohol? 7 [email or web address] Information not available 03/08/2021 Are You Blind Or Do You Have Difficulty Seeing? No Information not available 03/08/2021 What Is Your Level Of Caffeine Consumption? Moderate [email or web address] Information not available 07/29/2020 In The 14 Days Before Symptom Onset, Have You Had Close Contact With A Laboratory-confir med COVID-19 While That Case Was Ill? No [email or web address] Information not available 03/08/2021 In The 14 Days Before Symptom Onset, Have You Had Close Contact With A Person Who Is Under Investigation For COVID-19 While That Person Was Ill? No Information not available 03/08/2021 Have You Been To An Area Known To Be High Risk For COVID-19? No Information not available 03/08/2021 Are You Deaf Or Do You Have Serious Difficulty Hearing? No [email or web address] Information not available 03/08/2021 What Type Of Diet Are You Following? SPECIFIC [email or web address] Information not available 06/09/2022 Which Illicit Or Recreational Drugs Have You Used? THC, Acid X2 [email or web address] Information not available 02/07/2023 Do You Or Have You Ever Used E-cigarettes Or Vape? Never Used Electronic Cigarettes [email or web address] Information not available 02/07/2023 What Is The Highest Grade Or Level Of School You Have Completed Or The Highest Degree You Have Received? [id number] [email or web address] Information not available 03/08/2021 How Many Days Of Moderate To Strenuous Exercise, Like A Brisk Walk, Did You Do In The Last 7 Days? 3 [email or web address] Information not available 02/07/2023 On Those Days That You Engage In Moderate To Strenuous Exercise, How Many Minutes, On Average, Do You Exercise? 120 [email or web address] Information not available 02/07/2023 Are There Any Guns Present In Your Home? No [email or web address] Information not available 03/08/2021 How Many Years Have You Used Illicit Or Recreational Drugs? 7 [email or web address] Information not available 02/07/2023 What Was The Date Of Your Most Recent Tobacco Screening? 06/15/2022 [email or web address] Information not available 02/07/2023 Have You Ever Been Counseled For Unhealthy Alcohol Use? No [email or web address] Information not available 02/07/2023 Do You Use Protection During Sex? Usually [email or web address] Information not available 06/09/2022 Do You Use Your Seat Belt Or Car Seat Routinely? Yes [email or web address] Information not available 06/09/2022 Do You Have Smoke And Carbon Monoxide Detectors In Your Home? Yes [email or web address] Information not available 03/08/2021 At What Age Did You Start Smoking Tobacco? 12 [email or web address] Information not available 07/29/2020 Do You Or Have You Ever Used Smokeless Tobacco? Never Used Smokeless Tobacco [email or web address] Information not available 02/07/2023 How Much Tobacco Do You Smoke? No [email or web address] Information not available 03/08/2021 Do You Feel Stressed (tense, Restless, Nervous, Or Anxious, Or Unable To Sleep At Night)? [id number] [email or web address] Information not available 06/09/2022 Do You Use Any Illicit Or Recreational Drugs? Yes [email or web address] Information not available 07/29/2020 Do You Use Sunscreen Routinely? No [email or web address] Information not available 03/08/2021 How Many Years Have You Smoked Tobacco? 3 [email or web address] Information not available 05/14/2024 Have You Used IV Drugs? No Information not available 07/29/2020 Sex: Unknown Functional Status Question Answer Note LastModified by Organizat ion Details LastModified Time Do you have difficulty walking or climbing stairs? No Information not available 02/07/2023 Are you able to walk? YESWOREST [email or web address] Information not available 03/08/2021 Are you able to care for yourself? Yes [email or web address] Information not available 02/07/2023 Do you have difficulty dressing or bathing? No [email or web address] Information not available 02/07/2023 What is your exercise level? Occasional Information not available 05/06/2020 Mental Status None recorded. Family History Relationship Description Onset Age of this Age Resolved Age Notes LastModified by Organization Details LastModified Time Maternal Aunt Hypertensive disorder [email or web address] Not available 2023 10:50:56 Maternal Grandmother Hypertensive disorder Not available 2023 10:50:56 Maternal Grandmother Diabetes mellitus Not available 2023 10:50:56 Medical History Condition Response Allergies (Food, seasonal, environmental ) N Other N Drug/Latex Allergies/Reactions N Blood Transfusion N Breast Cancer N Dermatologic Disorders N Lung Disease N Defects or Inherited Disease N Breast Problem N Gestational Diabetes N Hematologic disorders N Anesthesia Complications N History of STI N Deep Vein Thrombosis N Polycystic ovary syndrome Y Anxiety Disorder Y Autoimmune disease N Arthritis N Polyps N Infertility N Acid Reflux (GERD) Y History of abnormal pap N Cancer N Varicosities N Stroke N Neurologic/Epilepsy N Endometriosis N High Cholesterol N Fibromyalgia N Headaches Y Kidney Disease N Heart Problems N Thyroid Problems N Kidney or Bladder Problems N GI Problems N Eating Disorder N Anemia N Art (IVF or FET) N Psychiatric Illness N Ovarian Cancer N Diabetes Y Pulmonary (TB, Asthma) Y Hepatitis/Liver Disease N No Past Medical History N Eczema N Urinary Tract Infection N Abuse/Domestic Violence N Asthma Y Trauma/Violence N Depression/ depression Y Heart Disease N Pre-Eclampsia N Hypertension N Osteoporosis N Thrombophilias N Gynecological History Statement/Question Response Flow Moderate Date of LMP 05/07/2024 On BCP's at Conception? N N Was last menstrual period normal Y STIs/STDs N HPV Vaccine N Duration of Flow (days) 3 Current Control Method Condoms Are cycles usually normal Y Sexually Active? Y Implant Menses Monthly Y Age of first menstrual cycle 13 Date of Last Pap Smear 06/15/2022 Sexual Problems? N Desired Control Method Condoms LMP Definite N Obstetrics History GPAL:G 0 P 0 0 0 0 Past Encounters Encounter ID Performer Location Encounter Start Date Encounter Closed Date Diagnosis/Indication Diagnosis SNOMED-CT Code Diagnosis ICD10 Code Diagnosis Note [id number] Lima Young CNM [facility] [address],[place] [address] 05/06/2020 11:10:44 05/06/2020 15:43:34 Gynecologic examination 27904166 Z01.419 [id number] Lima Young [facility] [address],[place] [address] 07/29/2020 09:51:24 07/29/2020 11:07:20 Contraception care management 982040704 Z30.9 [id number] Lima Young [facility] [address],[place] [address] 03/08/2021 09:53:01 03/08/2021 15:55:41 Polycystic ovary syndrome 455108553 E28.2 [id number] Valerie Quispe TAMERA [facility] [address],[place] [address] 2022 15:46:53 2022 16:51:05 Polycystic ovary syndrome 392827879 E28.2 Acne 76566857 L70.9 Contracept ion care management 004647236 Z30.9 Rx for Microgesti n, as she would like to restart this. Will start on the first day of next mensesR/B of OCP discussed and accepted by patientDen ies hx of DVT/PE, HTN, liver disease, cancer, stroke/CT, or migraine with aura.She would like to restart metformin and spironolac tone, as she had prior success with these before.Mark l have her repeat labs, CMP and hemoglobin A1C prior to restarting She will need to f/u with PCP about elevated hemoglobin A1C as wellRTC in 2 months for med check Time spent in visit is a total of 25 mins with at least 50% of visit consisting of counseling and review of plan of care. Loss of hair 731744217 L 65.9 [id number] Valerie Quispe TAMERA [facility] [address],[place] [address] 02/27/2022 15:45:29 02/27/2022 16:34:52 Venereal disease screening 659227578 Z11.3 Vaginitis 79856056 N76.0 Suspect BV vs Trich - discussed this with patientVag initis panel sentSTI endocervic al [facility] orderedRx sent for metronidaz ole, fluconazol e for any secondary yeast infectionC ondom use encouraged Will notify patient with results when available Time spent in visit is a total of 25 mins with at least 50% of visit consisting of counseling and review of plan of care. Sexually t ransmitted infectious disease 5780234 A64 [id number] Kelly Brooks [facility] [address],[place] [address] 06/09/2022 09:34:06 06/11/2022 16:09:46 Vaginitis 80303250 N76.0 Suspect BV on examSTD sentVCG sheet for reviewRx sent Counseled on medication R/B's, Most common side effects, & use. All questions were answered to patient satisfacti on. Time spent in visit is a total of 15 mins with at least 50% of visit consisting of counseling and review of plan of care. [id number] Lima Young CNM [place] [facility] [address],[place] [address] 06/15/2022 15:29:00 06/16/2022 11:12:24 Gynecologic examination 24172558 Z01.419 [id number] Valerie Quispe [place] [address],[place] [address] 02/07/2023 13:49:12 02/07/2023 14:21:28 Venereal disease screening 814285888 Z11.3 gc/ct/tric h [facility] sentsafe sexual practices encouraged will update patient with results when available Time spent in visit is a total of 15 mins with at least 50% of visit consisting of counseling and review of plan of care. Sexually t ransmitted infectious disease 4991032 A64 [id number] LISY VILLASENOR NP [facility] [address],[place] [address] 05/14/2024 10:50:04 05/14/2024 11:44:43 Gynecologic examination 99511328 Z01.419 Annual gynecologi ronnie exam performed. Patient will come back in a year unless there are new symptoms. Suggest Calcium with Vitamin D if not eating in diet. Patient advised to get annual flu shot. Recommend yearly physicals and perform monthly breast exams. Genetic testing is available for patients with family history of cancer. Engage in safe sexual practices, use condoms. Encouraged to have daily exercise. Avoid tobacco and illicit drugs, moderation of alcohol. If BMI greater than 25 dietary consult advised. If you have any questions please call or email. mammogram- n/a colon cancer screening - n/a DEXA scan- n/a Pap smear- UTD (06/15/2022 - WNL), will repeat in 2024 per ASCCP guidelines . laboratory evaluation - PCP STI testing - declined Contracept ion care management 071696719 Z30.9 Discussed all control options in depth and pt is interested in Nexplanon. Discussed all risks and benefits including irregular unschedule d bleeding. Pt verbalized understand ing and would like to proceed.Pt worried about need to wait for next period before placement d/t the risks of with PAH.Discus sed that Nexplanon may be placed within the next 1-2 days since she has not had unprotecte d intercours e since her LMP. test will still be collected before placement of Nexplanon. Pt verbalized understand ing. [id number] Yue Tiwari [facility] [address],[place] [address] 05/15/2024 09:34:52 05/15/2024 10:20:13 Contraception care management 444949462 Z30.9 Insertion of subcutaneous contraceptive 781348379 Z30.9 1. The patient was instructed that the pressure dressing should remain in place until tomorrow. Most women do not experience pain after insertion, but if it occurs, OTC pain medication usually provide relief. She should call the provider if she develops pain, discharge, or swelling at the insertion site, fever, or other concerns.2 . Back-up contracept ion may be required.3 . The implant will need to be replaced in four years. Health Concerns Section Related Observation LastModified by Organization Detai ls LastModified Time None Recorded Concern Status LastModified by Organization Details LastModified Time None Recorded Advance Directives Directive N: Payers Encounter Date Sequence Insurance Name Policy Number Policy Arriola Covered Member ID Arriola Member ID Guarantor Name 06/09/2022 *SELF PAY* Ma todd N Mechler 06/09/2022 1 [facility] - DOS ON OR AFTER 21 (MEDICAID REPLACEMENT - HMO) [id number] 06/15/2022 *SELF PAY* Ma todd N Mechler 06/15/2022 1 [facility] - DOS ON OR AFTER 21 (MEDICAID REPLACEMENT - HMO) [address] [id number] [place] 02/07/2023 1 [facility] - DOS ON OR AFTER 21 (MEDICAID REPLACEMENT - HMO) [id number] 05/14/[address] [employer] [id number] 05/14/2024 2 [place]: [facility] A[facility] [id number] 05/15/[id number] 05/15/2024 2 [place]: [facility] [id number] [place] Notes Date Note Type Note Provider Name and Address Organization Details Recorded Time 06/09/2022 text/html Vaginal/Vulvar ProblemReported bypatient.Location:[facility] Onset/Timing:abrupt Duration:present for 1-7 days Quality:itching (+odor , vag d/c, sa same partner since last STD screen) Severity:mild Context:sexually active; history of recurrent vaginal infections Alleviating Factors:none Aggravating Factors:none Associated Symptoms:no vaginal pain; no vulvar itching/irritation; no vulvar swelling/erythema; no vulvar pain; no vulvar lesions; no pelvic pain; no dyspareunia; no dysuria; no fever; no abdominal pain SERENE Moreno-BC [address], [place], [address], [facility] 06/09/2022 10:12:57 06/15/2022 text/html Annual GYNReport ed bypatient.Menstrual cycle:Normal menses Urinary symptoms:No hematuria; No incontinence Vulva:No genital lesion Vagina:Normal vaginal discharge Breast:No breast pain; No breast lump; No nipple discharge Current Contraception:Satisf ied with current contraception Sexual complaints:No sexual complaints; No pain during intercourse; Normal libido Menopausal Symptoms:No menopausal symptoms; Normal vaginal lubrication Psychological symptoms:No depression; No anxiety; No PMDD Preventive measures:Encourage self breast examination; Encourage regular exercise; Encourage no tobacco useNotes:acne increased on spiron 50mg would like to increase to 100mg Lima Young CNM [address], [place], [address], [facility] 06/15/2022 17:35:46 02/07/2023 text/html 28yopresents for STI testingno symptoms, found out previous partner was unfaithfulabout to become SA with new partner and would like to get tested SERENE Monet [address], [place], [address], [facility] 02/07/2023 14:18:26 05/14/2024 text/html Annual GYNReport ed bypatient.History:no gynecologic complaints Menstrual cycle:Normal menses Urinary symptoms:No hematuria; No incontinence Vulva:No genital lesion Vagina:Normal vaginal discharge Breast:No breast pain; No breast lump; No nipple discharge Sexual complaints:No sexual complaints; No pain during intercourse; Normal libido Menopausal Symptoms:No menopausal symptoms; Normal vaginal lubrication Psychological symptoms:No depression; No anxiety; No PMDD Preventive measures:Encourage self breast examination; Encourage regular exercise; Encourage no tobacco use; Encourage regular mammograms starting age 40 Patient presents for annual well woman exam.Patient was recently diagnosed with pulmonary arterial hypertension/HF and has started on several medications prescribed by account development representative/cardio logist from [facility]. Patient was advised that the risk of maternal/ mortality is high if she gets . Patient would like to discuss a LARC method for BC, pt interested in Nexplanon.Patient denies any unprotected intercourse since her LMP on 05/07/24. LISY VILLASENOR NP [address], [place], [address], [place] [facility] 05/14/2024 11:35:50 05/15/2024 text/html Patient here for Nexplanon insertion. Informed consent obtained. Yue paredes, [facility] 05/15/2024 10:16:55 OBGyn Episode No OBEpisode recorded.
--- OUTSIDE RECORDS SUMMARY | 2024-09-14 19:03 | XMS_ITS | CONTINUITY OF CARE DOCUMENT ---
Author Name clarence lima Address Unknown Organization [facility] Address [address] [place] [address] Phone [phone] Care Team Providers Care Database Tester Name Role Phone Moreno Gilmore MD Unavailable SUSANA RODRIGUEZ MD Unavailable [phone] INS[employer]ANCE PROVID[employer] Payer name Policy type / Coverage type [place] [employer] ID [id number] PAY
--- OUTSIDE RECORDS SUMMARY | 2024-09-14 19:03 | XMS_ITS | Clinical Summary ---
Author Organization [facility] [place] [address] Address [address] [place] [address] Care Team Providers Care Station Installation Supervisor Name Role Phone Connie Cotto NP Primary Care Provider [phone] Allergies Active Allergy Reactions Criticality Noted Date [...] Noted Date Diagnosed Date Pulmonary hypertension 05/04/2024 Medical History Medical History Date Comments Asthma PCOS (polycystic ovarian syndrome) Hypertension Family History Medical History Relation Name Comments Alzheimer's disease Maternal Grandmother Michelle Diabetes Maternal Grandmother Michelle Heart disease Maternal Grandmother Michelle Hypertension Maternal Grandmother Michelle Obesity Maternal Grandmother Michelle Alcohol abuse Mother Kalpana Diabetes Mother Kalpana Obesity Mother Kalpana Diabetes Mother's Sister Betty Hypertension Mother's Sister Betty Obesity Mother's Sister Betty Relation Name Status Comments Maternal Grandmother Michelle Mother Kalpana Mother's Sister Betty Social History Tobacco Use Types Packs/Day Years [...] on file Sexual Orientation Not on file Obstetrics History Last Filed Vital Signs Vital Sign Reading [...] 05/04/2024 10:02 AM CDT Plan of Treatment Health Maintenance Due Date Last Done Comments Cervical Cancer Screening 1995 Depression Screening 1995 Hepatitis C Screening 1995 Varicella Vaccines (1 of 2 - 13+ 2-dose series) 01/17/2008 Regular Well Visit/Exam 18-64 2013 Pneumococcal vaccine <65 (1 of 2 - PCV) 2014 Covid-19 Vaccine (3 - season) 2024 05/28/2021, 10/11/2020 Influenza Vaccine (#1) 2024 DTaP/Tdap/Td Vaccine (6 - Td or Tdap) 08/27/2031 08/27/2021, 04/06/1999, 11/19/1996, Additional history exists Hepatitis B Screening Completed 08/22/2000 , 03/06/1999, 1995 HPV Vaccines Aged Out No longer eligi ble based on patient's age to complete this topic Insurance [facility] H[facility]/PPO Address: [address] [address] [place] [address] [facility] PPO Care Teams Station Installation Supervisor Relationship Specialty Start Date End Date Connie Cotto NP [address] [address] PCP - General Family Medicine 11/29/23
== END 2024-09-14 18:12 | disposition home or self-care (01) ==
PROVIDERS: Emergency Provider Nurse Practitioner Family; PCP Nurse Practitioner Family
DX: J40 Bronchitis, not specified as acute or chronic (principal); I10 Essential (primary) hypertension; E28.2 Polycystic ovarian syndrome; J45.909 Unspecified asthma, uncomplicated; I27.20 Pulmonary hypertension, unspecified; E66.01 Morbid (severe) obesity due to excess calories; Z68.41 Body mass index [BMI] 40.0-44.9, adult; F12.90 Cannabis use, unspecified, uncomplicated; Z87.891 Personal history of nicotine dependence
CPT/HCPCS: 71046; 94640; 99213; G0463